=== PATIENT | female | born 1995 | race Caucasian/White ===

== ENCOUNTER 2023-10-21 12:19 | Outpatient (AMB) | payer OTHER, SELFPAY ==
[2023-10-21 12:26] VITALS: BP 126/78; PULSE 99; O2SAT 99; BMI 23.8
--- NOTE | 2023-10-21 12:26 | MHC.PC.OV ---
Vital Signs 10/21/23 12:26 Height 5 ft 7 in Weight 152 lb BMI 23.8 BP 126/78 Blood Pressure Location Rt brachial Position Sitting Pulse 99 Pulse Source Pulse Oximeter Pulse Oximetry (%) 99 Oxygen Delivery Method Room Air Intake Visit Reasons: PE (physical exam), annual Intake Note: Pt is here today for PE. Pt has [employer] and her last pap was at the end of 2020. Allergies amoxicillin Allergy (Unknown, Verified 10/21/23 12:39) rash, vomitting shrimp Allergy (Unknown, Uncoded 10/21/23 12:39) hives Medication List - Last Reconciled 10/21/23 by Ann-Marie Boles MD albuterol sulfate 90 mcg/actuation 2 puffs inhalation Q6H PRN levonorgestrel-ethinyl estrad 0.1-20 mg-mcg 1 tab PO DAILY sertraline (Zoloft) 50 mg PO DAILY Tobacco use date assessed: 10/21/23 Dental Screening Dental Screen Date: 10/21/23 Did you have a dental visit in the last 12 months?: Yes Did you have a dental problem in the last 6 months where you did not have access to dental care?: No Was dental information given to patient?: Patient has dentist HPI Encounter for annual physical exam HPI Details Patient presents for physical. She complains of chronic anxiety and depression getting worse over the last few months. 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 She is established with a counselor and has weekly visits. Patient exercises 4 times a week but reports feeling tired after work, not motivated to interact with her friends or family. Patient denies suicidal ideation or insomnia, change in appetite but has not been preparing meals for herself as before. [facility] Medical History Bartholin gland cyst Asthma Surgical History S/P ACL surgery S/P appendectomy Status post cholecystectomy Family History Father No problems noted. Mother No problems noted. 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 1. Little interest or pleasure in doing things: several days 2. Feeling down, depressed, or hopeless: more than half the days 3. Trouble falling or staying asleep, or sleeping too much: more than half the days 4. Feeling tired or having little energy: more than half the days 5. Poor appetite or overeating: several days 6. Feeling bad about yourself - or that you are a failure or have let yourself or your family down: not at all 7. Trouble concentrating on things, such as reading the newspaper or watching television: more than half the days 8. Moving or speaking so slowly that other people could have noticed. Or the opposite - being so fidgety or restless that you have been moving around a lot more than usual: more than half the days 9. Thoughts that you would be better off or of hurting yourself in some way: not at all Total score: 12 Depression Screening Interpretation: Positive Depression Screening Done: Yes Source: Developed by Drs. Gus Gusman, Yu Vincent, Jassi Lee and colleagues, with an educational maki from [email or web address]. Thrive Questionnaire Date Thrive assessed: 10/21/23 I am a: Patient What is your living situation today?: I have a steady place to live Within the past 12 months, did the food you bought not last and you didn't have the money to get more?: Never true Within the past 12 months, did you worry whether your food would run out before you got money to buy more?: Never true Do you have trouble paying for medicines?: No Do you have trouble getting transportation to medical appointments?: No Do you have trouble paying your heating and electricity bill?: No Do you have trouble taking care of your child, family member or friend?: No Do you have trouble with day-to-day activities such as bathing, preparing meals, shopping, managing finances, etc.?: No Are you currently unemployed and looking for a job?: No Are you interested in more education?: No Please select the resources that you would like help with: None Currently or been in a relationship where the following occur: no concerns reported THRIVE Score: 0 AUDIT C Alcohol Use Questionnaire (AUDIT-C) 1. How often do you have a drink containing alcohol?: Monthly or less 2. How many drinks containing alcohol do you have on a typical day when you are drinking?: 1 or 2 3. How often do you have six or more drinks on one occasion?: Never Total Score: 1 JC-7 AMB Questionnaire JC-7 Date JC - 7 assessed: 10/21/23 Feeling nervous, anxious, or on edge: 2 = More than half the days Not being able to stop or control worryin = Nearly every day Worrying too much about different things: 3 = Nearly every day Trouble relaxin = More than half the days Being so restless that it is hard to sit still: 1 = Several days Becoming easily annoyed or irritable: 2 = More than half the days Feeling afraid as if something awful might happen: 0 = Not at all Total JC-7 score (0-4 normal; 5-9 mild; 10-14 moderate; 15-21 severe): 13 Source: Developed by Drs. Gus Gusman, Yu Vincent, Jassi Lee and colleagues, with an educational maki from [email or web address]. Review of Systems Const All systems reviewed & are unremarkable except as noted in HPI and below Reports no additional complaints Eyes Reports no additional complaints ENT Reports no additional complaints Card Reports no additional complaints Resp Reports no additional complaints GI Reports no additional complaints Reports no additional complaints Physical exam (Primary Care) Vital Signs: Last Vital Signs Pulse 99 10/21/23 12:26 BP 126/78 10/21/23 12:26 Pulse Ox 99 10/21/23 12:26 Oxygen Delivery Method Room Air 10/21/23 12:26 BMI result Body Mass Index 23.8 Tobacco/Smoking Status: Tobacco use Status Tobacco use date assessed 10/21/23 10/21/23 12:42 Patient Tobacco Use Status Never used Tobacco 10/21/23 12:42 e-Cigarette/Vaping Use Never Used 10/21/23 12:26 PHQ-9: PHQ-9 Score PHQ-9: Total score 12 10/21/23 13:02 Depression Screening Interpretation: Positive Thrive Assessment: Date of Thrive Assessment Date Thrive assessed 10/21/23 10/21/23 12:49 Currently or been in a relationship where the following occur: no concerns reported Const General: no acute distress HENMT Head: Yes normal to inspection Ears: hearing grossly normal bilaterally General nose exam: Normal external nose present Mouth: Normal oral and palatal mucosa present Throat: Yes posterior oropharynx normal Eyes General: appearance normal, both eyes and all related structures Neck Neck: Yes no lymphadenopathy and Yes supple Resp Effort & Inspection: normal respiratory effort Auscultation: clear to auscultation bilaterally Cardio Rhythm: regular rhythm Heart sounds: S1 normal heart sound present and S2 normal heart sound present GI Inspection: Yes normal to inspection Palpation (GI): Soft to palpation Percussion: Yes normal to percussion Auscultation: normal bowel sounds Assessment and Plan Assessment & Plan (1) Annual physical exam: Code(s): Z00.00 - Encounter for general adult medical examination without abnormal findings Plan: Well-balanced diet regular physical activity discussed with the patient (2) Normal pelvic exam: Comment: vice president research 2020 negative Code(s): Z01.419 - Encounter for gynecological examination (general) (routine) without abnormal findings (3) Anxiety and depression: Code(s): F41.9 - Anxiety disorder, unspecified; F32.A - Depression, unspecified Plan: Continue with counseling, start Zoloft 25 mg for the 1st week then increase to 50 mg. Follow-up in 2 months Orders: Orders Complete Blood Count Auto Diff Today Z00.00 - Encounter for general adult medical examination without abnormal findings TSH reflex Free T4 Today Z00.00 - Encounter for general adult medical examination without abnormal findings Comprehensive [place]. Panel Fast Today Z00.00 - Encounter for general adult medical examination without abnormal findings Lipid Panel Today Z00.00 - Encounter for general adult medical examination without abnormal findings IRON PROFILE Today Z00.00 - Encounter for general adult medical examination without abnormal findings Medications: New sertraline (Zoloft) 1/2 tabl qd x 1 week, 1 tabl qd 50 mg PO DAILY 90 tabs 0RF Coding Level of Care Code Est Pt Prev Care 18-39y(21192) Diagnoses Annual physical exam Z00.00 Normal pelvic exam Z01.419 Anxiety and depression F41.9; F32.A
== END 2023-10-21 15:11 | disposition home or self-care (01) ==
PROVIDERS: PCP Internal Medicine; Visit Provider Internal Medicine
DX: Z00.00 Encounter for general adult medical examination without abnormal findings (principal); Z01.419 Encounter for gynecological examination (general) (routine) without abnormal findings; F41.9 Anxiety disorder, unspecified; F32.A Depression, unspecified
CPT/HCPCS: 99395

== ENCOUNTER 2023-10-21 13:23 | Outpatient (REF) | payer OTHER, SELFPAY ==
[2023-10-21 16:23] LABS: Basophils Percent Auto 0.5 % (0-2); Eosinophils Absolute Auto 0.1 X10*3/uL (0.0-0.4); Eosinophils Percent Auto 1.1 % (0-4); Hematocrit 41.4 % (37.0-47.0); Hemoglobin 14.1 g/dl (12.0-16.0); Imm Gran Abs Auto 0.02 X10*3/uL (0.00-0.03); Imm Gran Pct Auto 0.3 % (0.0-0.4); Lymphocytes Percent Auto 31.3 % (20-40); MANUAL DIFF FLAG NO; Mean Corpuscular HGB Conc 34.1 g/dl (31.0-35.0); Mean Corpuscular Hemoglobin 29.3 pg (27.0-33.0); Mean Corpuscular Volume 85.9 fL (80.0-98.0); Mean Platelet Volume 10.7 fL (9.4-12.3); Monocytes Absolute Auto 0.7 X10*3/uL (0.1-1.2); Monocytes Percent Auto 11.1 % (2-11); Neutrophils Absolute Auto 3.6 x10*3/uL (2.0-8.3); Neutrophils Percent Auto 55.7 % (45-73); Platelet Count 291 X10*3/uL (160-400); Red Blood Count 4.82 X10*6/uL (4.20-5.50); Red Cell Distribution Width 11.8 % (11.0-16.0); White Blood Count 6.5 X10*3/uL (4.8-10.8)
[2023-10-21 17:34] LABS: Alanine Aminotransferase 13 U/L (0-31); Albumin Level 4.3 g/dL (3.5-5.0); Alkaline Phosphatase 54 U/L (39-117); Anion Gap 17 (12-20); Aspartate Amino Transferase 16 U/L (5-31); Bilirubin Total 0.4 mg/dL (0.0-1.0); Blood Urea Nitrogen 11 mg/dL (9-16); Calcium 9.6 mg/dL (8.4-10.2); Carbon Dioxide 22 mmol/L (22-29); Chloride 106 mmol/L (96-108); Cholesterol 178 mg/dL (<200); Estimated Glomerular Filt Rate > 60; Glucose Fasting 94 mg/dL (60-99); HDL Cholesterol 77 mg/dL (>40); Iron 74 mcg/dL (30-160); LDL Cholesterol Calculated 93 mg/dL (<100); Percent Iron Saturation 22 % (15-50); Potassium 4.2 mmol/L (3.3-5.1); Sodium 141 mmol/L (135-145); Total Iron Binding Capacity 344 mcg/dL (228-428); Total Protein 7.6 g/dL (6.5-8.0); Triglycerides 42 mg/dL (<150); Unsaturated Iron Binding 270 ug/dL
[2023-10-21 17:48] LABS: TSH reflex Free T4 1.44 uIU/mL (0.32-4.0)
== END 2023-10-21 13:24 | disposition home or self-care (01) ==
LOC: HO.HMGCLDS 13:23
PROVIDERS: PCP Internal Medicine; Visit Provider Internal Medicine
DX: Z00.00 Encounter for general adult medical examination without abnormal findings (principal)
CPT/HCPCS: 36415; 80053; 80061; 83540; 84443; 85025

== ENCOUNTER 2024-06-27 09:09 | Outpatient (AMB) | payer OTHER, SELFPAY ==
[2024-06-27 09:16] VITALS: BP 124/86; PULSE 97; O2SAT 97; BMI 26.6
--- NOTE | 2024-06-27 09:16 | A.OFFPC_ITS ---
Vital Signs 06/27/24 09:16 Height 5 ft 7 in Weight 170 lb BMI 26.6 BP 124/86 Blood Pressure Location Lt brachial Position Sitting Pulse 97 Pulse Source Pulse Oximeter Pulse Oximetry (%) 97 Oxygen Delivery Method Room Air Intake Visit Reasons: Regular Visit Intake Note: Pt is here today for a follow up visit. Allergies amoxicillin Allergy (Unknown, Verified 06/27/24 09:23) rash, vomitting shrimp Allergy (Unknown, Uncoded 06/27/24 09:16) hives Medication List - Last Reconciled 06/27/24 by Ann-Marie Boles MD albuterol sulfate 90 mcg/actuation 2 puffs inhalation Q6H PRN levonorgestrel-ethinyl estrad 0.1-20 mg-mcg 1 tab PO DAILY meloxicam 15 mg PO DAILY Tobacco use date assessed: 06/27/24 Dental Screening Dental Screen Date: 06/27/24 Did you have a dental visit in the last 12 months?: Yes Did you have a dental problem in the last 6 months where you did not have access to dental care?: No Was dental information given to patient?: Patient has dentist HPI Regular Visit HPI0 Details Pt c/o R wrist after injury playing volleyball 1 week ago. Pt had negative XR in Urgent Care. The pain is worse when patient is trying to use her right hand. She denies pain at rest. She tried wrist splint which made the pain worse. Patient denies soft tissue swelling erythema or warmth. [facility] Medical History Bartholin gland cyst Asthma Surgical History S/P ACL surgery S/P appendectomy Status post cholecystectomy Family History Father No problems noted. Mother No problems noted. 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 1. Little interest or pleasure in doing things: several days 2. Feeling down, depressed, or hopeless: several days 3. Trouble falling or staying asleep, or sleeping too much: several days 4. Feeling tired or having little energy: more than half the days 5. Poor appetite or overeating: not at all 6. Feeling bad about yourself - or that you are a failure or have let yourself or your family down: not at all 7. Trouble concentrating on things, such as reading the newspaper or watching television: not at all 8. Moving or speaking so slowly that other people could have noticed. Or the opposite - being so fidgety or restless that you have been moving around a lot more than usual: not at all 9. Thoughts that you would be better off or of hurting yourself in some way: not at all Total score: 5 Depression Screening Interpretation: Negative Depression Screening Done: Yes 46381 - PHQ-9 Billing: Yes Source: Developed by Drs. Gus Gusman, Yu Vincent, Jassi Lee and colleagues, with an educational maki from [employer]. Thrive Questionnaire Date Thrive assessed: 06/27/24 I am a: Patient What is your living situation today?: I have a steady place to live Within the past 12 months, did the food you bought not last and you didn't have the money to get more?: I choose not to answer this question Within the past 12 months, did you worry whether your food would run out before you got money to buy more?: I choose not to answer this question Do you have trouble paying for medicines?: No Do you have trouble getting transportation to medical appointments?: No Do you have trouble paying your heating and electricity bill?: No Do you have trouble taking care of your child, family member or friend?: I choose not to answer this question Do you have trouble with day-to-day activities such as bathing, preparing meals, shopping, managing finances, etc.?: I choose not to answer this question Are you currently unemployed and looking for a job?: No Are you interested in more education?: No Please select the resources that you would like help with: None Currently or been in a relationship where the following occur: No concerns reported THRIVE Score: 0 AUDIT C Alcohol Use Questionnaire (AUDIT-C) 1. How often do you have a drink containing alcohol?: Monthly or less 2. How many drinks containing alcohol do you have on a typical day when you are drinking?: 1 or 2 3. How often do you have six or more drinks on one occasion?: Never Total Score: 1 JC-7 AMB Questionnaire JC-7 Date JC - 7 assessed: 06/27/24 Feeling nervous, anxious, or on edge: 2 = More than half the days Not being able to stop or control worryin = More than half the days Worrying too much about different things: 2 = More than half the days Trouble relaxin = More than half the days Being so restless that it is hard to sit still: 2 = More than half the days Becoming easily annoyed or irritable: 2 = More than half the days Feeling afraid as if something awful might happen: 1 = Several days Total JC-7 score (0-4 normal; 5-9 mild; 10-14 moderate; 15-21 severe): 13 Source: Developed by Drs. Gus Gusman, Yu Vincent, Jassi Lee and colleagues, with an educational maki from [employer]. JC-7 Assessment Billing JC-7 Assessment Tool: JC-7 Assessment 39093 Review of Systems Const All systems reviewed & are unremarkable except as noted in HPI and below Eyes Reports no additional complaints ENT Reports no additional complaints Card Reports no additional complaints Resp Reports no additional complaints GI Reports no additional complaints Physical exam (Primary Care) Vital Signs: Last Vital Signs Pulse 97 06/27/24 09:16 BP 124/86 06/27/24 09:16 Pulse Ox 97 06/27/24 09:16 Oxygen Delivery Method Room Air 06/27/24 09:16 BMI result Body Mass Index 26.6 Tobacco/Smoking Status: Tobacco use Status Tobacco use date assessed 06/27/24 06/27/24 09:17 Patient Tobacco Use Status Never used Tobacco 06/27/24 09:17 e-Cigarette/Vaping Use Never Used 06/27/24 09:17 PHQ-9: PHQ-9 Score PHQ-9: Total score 5 06/27/24 09:17 Depression Screening Interpretation: Negative Thrive Assessment: Date of Thrive Assessment Date Thrive assessed 06/27/24 06/27/24 09:17 Currently or been in a relationship where the following occur: No concerns reported Const General: no acute distress Resp Effort & Inspection: normal respiratory effort Auscultation: clear to auscultation bilaterally Cardio Rhythm: regular rhythm Heart sounds: S1 normal heart sound present and S2 normal heart sound present Extrem Other: There is tenderness and slightly decreased range of motion of ulnar aspect of right wrist, no soft tissue swelling erythema or warmth Coding Level of Care Code Est Pt Level 3 (19195) Diagnoses Right wrist injury S69.91XA Additional Codes JC-7 Assessment Billing - JC-7 Assessment Tool: JC-7 Assessment 27061 ([id number]) Assessment & Plan Assessment & Plan (1) Right wrist injury: Code(s): S69.91XA - Unspecified injury of right wrist, hand and finger(s), initial encounter Category: Medical Plan: Patient will schedule OT near her home, supportive care discussed with the patient, meloxicam ss prescribed Orders: Orders OT Evaluation and Treatment Today S69.91XA - Unspecified injury of right wrist, hand and finger(s), initial encounter Medications: New meloxicam 15 mg PO DAILY 10 tabs 0RF
== END 2024-06-27 10:51 | disposition home or self-care (01) ==
PROVIDERS: PCP Internal Medicine; Visit Provider Internal Medicine
DX: S69.91XA Unspecified injury of right wrist, hand and finger(s), initial encounter (principal)

== ENCOUNTER → 2024-06-27 09:09 | Outpatient (BNVA) | payer OTHER, SELFPAY | PROVIDERS: PCP Internal Medicine; Visit Provider Internal Medicine | DX: S69.91XA Unspecified injury of right wrist, hand and finger(s), initial encounter (principal); X58.XXXA Exposure to other specified factors, initial encounter; Y93.68 Activity, volleyball (beach) (court); Y92.9 Unspecified place or not applicable; Y99.9 Unspecified external cause status | CPT/HCPCS: 96127 ==

== ENCOUNTER 2024-10-24 09:03 | Outpatient (AMB) | payer OTHER, SELFPAY ==
[2024-10-24 09:04] VITALS: BP 126/86; PULSE 112; RESP 18; TEMP 36.8; O2SAT 99; BMI 26.6
--- NOTE | 2024-10-24 09:04 | MHC.PC.OV ---
Vital Signs 10/24/24 09:04 Height 5 ft 7 in Weight 170 lb BMI 26.6 BP 126/86 Blood Pressure Location Lt brachial Position Sitting Respiration 18 Pulse 112 H Pulse Source Pulse Oximeter Temp 98.3 F Temp Source Oral Pulse Oximetry (%) 99 Oxygen Delivery Method Room Air Intake Visit Reasons: ER follow up Intake Note: Pt is here today for ER follow up visit. Pt states that she has been having nausea. Allergies amoxicillin Allergy (Unknown, Verified 10/24/24 09:14) rash, vomitting shrimp Allergy (Unknown, Uncoded 10/24/24 09:14) hives Medication List - Last Reconciled 10/24/24 by Ann-Marie Boles MD albuterol sulfate 90 mcg/actuation 2 puffs inhalation Q6H PRN levonorgestrel-ethinyl estrad 0.1-20 mg-mcg (Vienva) 1 tab PO DAILY Tobacco use date assessed: 10/24/24 Dental Screening Dental Screen Date: 10/24/24 Did you have a dental visit in the last 12 months?: Yes Did you have a dental problem in the last 6 months where you did not have access to dental care?: No Was dental information given to patient?: Patient has dentist HPI ER follow up HPI Details Patient presents for the follow-up of ER visit 2 weeks ago. Patient developed nausea vomiting abdominal pain increased urinary frequency dysuria. The CT of the abdomen and pelvis was negative for nephrolithiasis/acute abd process. Patient was treated for pyelonephritis with cefuroxime for 1 week with initially improvement of the symptoms. Patient's symptoms recurred 2 days after completing the treatment over a week ago. She denies fever chills but reports persistent epigastric abdominal discomfort, nausea intermittent vomiting worse after eating, needle-like sensation in the abdomen and lower back, constipation relieved after milk of magnesia. Patient denies hematochezia melena. She has not been sexually active for over a month and had negative test 2 weeks ago. [facility] Medical History Bartholin gland cyst Asthma Surgical History S/P ACL surgery S/P appendectomy Status post cholecystectomy Family History Father No problems noted. Mother No problems noted. Social History Household Members Other:: lives with boyfriend for 4 yrs, work as therapist in [place] Housing: Apartment Alcohol intake: current Alcohol intake frequency: holidays/special occasions only Patient Tobacco Use Status: Never used Tobacco e-Cigarette/Vaping Use: Never Used service: No Current occupational status: employed Cognitive needs: No Hearing needs: No Vision needs: Yes Questionnaire PHQ-9 Over the last 2 weeks, how often have you been bothered by any of the following problems? 1. Little interest or pleasure in doing things: several days 2. Feeling down, depressed, or hopeless: several days 3. Trouble falling or staying asleep, or sleeping too much: more than half the days 4. Feeling tired or having little energy: more than half the days 5. Poor appetite or overeating: more than half the days 6. Feeling bad about yourself - or that you are a failure or have let yourself or your family down: several days 7. Trouble concentrating on things, such as reading the newspaper or watching television: several days 8. Moving or speaking so slowly that other people could have noticed. Or the opposite - being so fidgety or restless that you have been moving around a lot more than usual: not at all 9. Thoughts that you would be better off or of hurting yourself in some way: not at all Total score: 10 Depression Screening Interpretation: Positive (Patient is established with therapist) Depression Screening Follow-up: Existing condition and In treatment Depression Screening Done: Yes 16431 - PHQ-9 Billing: Yes Source: Developed by Drs. Gus Gusman, Yu Vincent, Jassi Lee and colleagues, with an educational maki from [employer]. Thrive Questionnaire Date Thrive assessed: 10/24/24 I am a: Patient What is your living situation today?: I have a steady place to live Within the past 12 months, did the food you bought not last and you didn't have the money to get more?: Never true Within the past 12 months, did you worry whether your food would run out before you got money to buy more?: Never true Do you have trouble paying for medicines?: No Do you have trouble getting transportation to medical appointments?: No Do you have trouble paying your heating and electricity bill?: No Do you have trouble taking care of your child, family member or friend?: No Do you have trouble with day-to-day activities such as bathing, preparing meals, shopping, managing finances, etc.?: No Are you currently unemployed and looking for a job?: No Are you interested in more education?: No Please select the resources that you would like help with: None THRIVE Score: 0 AUDIT C Alcohol Use Questionnaire (AUDIT-C) 1. How often do you have a drink containing alcohol?: Monthly or less 2. How many drinks containing alcohol do you have on a typical day when you are drinking?: 1 or 2 3. How often do you have six or more drinks on one occasion?: Never Total Score: 1 JC-7 AMB Questionnaire JC-7 Date JC - 7 assessed: 10/24/24 Feeling nervous, anxious, or on edge: 1 = Several days Not being able to stop or control worryin = Several days Worrying too much about different things: 0 = Not at all Trouble relaxin = Several days Being so restless that it is hard to sit still: 0 = Not at all Becoming easily annoyed or irritable: 2 = More than half the days Feeling afraid as if something awful might happen: 0 = Not at all Total JC-7 score (0-4 normal; 5-9 mild; 10-14 moderate; 15-21 severe): 5 Source: Developed by Drs. Gus Gusman, Yu Vincent, Jassi Lee and colleagues, with an educational maki from [employer]. JC-7 Assessment Billing JC-7 Assessment Tool: JC-7 Assessment 80175 Review of Systems Const All systems reviewed & are unremarkable except as noted in HPI and below Eyes Reports no additional complaints ENT Reports no additional complaints Card Reports no additional complaints Resp Reports no additional complaints GI Reports no additional complaints Reports no additional complaints Physical exam (Primary Care) Vital Signs: Last Vital Signs Temp 98.3 F 10/24/24 09:04 Pulse 112 H 10/24/24 09:04 Resp 18 10/24/24 09:04 BP 126/86 10/24/24 09:04 Pulse Ox 99 10/24/24 09:04 Oxygen Delivery Method Room Air 10/24/24 09:04 BMI result Body Mass Index 26.6 Tobacco/Smoking Status: Tobacco use Status Tobacco use date assessed 10/24/24 10/24/24 09:07 Patient Tobacco Use Status Never used Tobacco 10/24/24 09:07 e-Cigarette/Vaping Use Never Used 10/24/24 09:06 PHQ-9: PHQ-9 Score PHQ-9: Total score 10 10/24/24 10:02 Depression Screening Interpretation: Positive (Patient is established with therapist) Depression Screening Follow-up: Existing condition and In treatment Thrive Assessment: Date of Thrive Assessment Date Thrive assessed 10/24/24 10/24/24 09:06 Const General: no acute distress HENMT Head: Yes normal to inspection Mouth: Normal oral and palatal mucosa present Throat: Yes posterior oropharynx normal Eyes General: appearance normal, both eyes and all related structures Neck Neck: Yes no lymphadenopathy and Yes supple Resp Effort & Inspection: normal respiratory effort Auscultation: clear to auscultation bilaterally Cardio Rhythm: regular rhythm Heart sounds: S1 normal heart sound present and S2 normal heart sound present GI Inspection: Yes normal to inspection Palpation (GI): Soft to palpation and Tenderness to palpation present (GI) in the epigastrum; with no rebound tenderness Percussion: Yes normal to percussion Auscultation: normal bowel sounds General: Yes CVA tenderness bilateral Back/Spine/Pelvis Back: CVA tenderness Results AMB Urinalysis, Automated UA Leukoctes 0 John Paul/uL Last Edit by RUDDY Silverio on 10/24/24 10:15 UA Nitrite Negative Last Edit by RUDDY Silverio on 10/24/24 10:15 UA Urobilinogen 0.2 mg/dL Last Edit by RUDDY Silverio on 10/24/24 10:15 UA Protein 0 mg/dL Last Edit by RUDDY Silverio on 10/24/24 10:15 UA pH 6.0 Last Edit by RUDDY Silverio on 10/24/24 10:15 UA Blood 0 Tim/uL Last Edit by RUDDY Silverio on 10/24/24 10:15 UA Specific Grundy 1.020 Last Edit by RUDDY Silverio on 10/24/24 10:15 UA Ketone Negative Last Edit by RUDDY Silverio on 10/24/24 10:15 UA Bilirubin 0 mg/dL Last Edit by RUDDY Silverio on 10/24/24 10:15 UA Glucose 0 mg/dL Last Edit by RUDDY Silverio on 10/24/24 10:15 Results Reviewed Results Reviewed: Laboratory Last Values Urine pH (Auto) 6.0 10/24/24 09:49 Specific Grundy (Auto) 1.020 10/24/24 09:49 Urine Protein (Auto) 0 mg/dL 10/24/24 09:49 Glucose (UA)(Auto) 0 mg/dL 10/24/24 09:49 Urine Ketones (Auto) Negative 10/24/24 09:49 Urine Blood (Auto) 0 Tim/uL 10/24/24 09:49 Urine Nitrite (Auto) Negative 10/24/24 09:49 Urine Bilirubin (Auto) 0 mg/dL 10/24/24 09:49 Urine Urobilinogen (Auto) 0.2 mg/dL 10/24/24 09:49 Leukocyte Esterase (Auto) 0 John Paul/uL 10/24/24 09:49 Coding Level of Care Code Est Pt Level 3 (98086) Diagnoses Dysuria R30.0 Abdominal pain R10.9 Additional Codes JC-7 Assessment Billing - JC-7 Assessment Tool: JC-7 Assessment 73360 ([id number]) PHQ-9 - 90238 - PHQ-9 Billing: Yes ([id number]) Assessment & Plan Assessment & Plan (1) Dysuria: Code(s): R30.0 - Dysuria Category: Medical Plan: Urine dipstick is negative. Levaquin 750 daily for 7 days is prescribed pending urine culture. Supportive care discussed with the patient (2) Abdominal pain: Code(s): R10.9 - Unspecified abdominal pain Category: Medical Plan: Trial of omeprazole check labs including comprehensive panel, constipation management discussed with the patient she was advised to increase fiber intake and use stool softener. Follow-up after treatment Orders: Orders Complete Blood Count Auto Diff Today R10.9 - Unspecified abdominal pain, R30.0 - Dysuria AMB Urinalysis Automated Today R10.9 - Unspecified abdominal pain, R30.0 - Dysuria Urine Culture Today R10.9 - Unspecified abdominal pain, R30.0 - Dysuria Comprehensive Met. Panel Today R10.9 - Unspecified abdominal pain, R30.0 - Dysuria Medications: New levofloxacin 750 mg PO DAILY 7 tabs 0RF 7 days ondansetron HCl 4 mg PO Q8H PRN 14 tabs 0RF nausea and vomiting omeprazole 20 mg PO DAILY 30 caps 0RF
--- OUTSIDE RECORDS SUMMARY | 2024-10-24 10:27 | XMS_ITS | Encounter Summary ---
[email or web address] Address [address] [place] [address] Care Team Providers Care Car Driver Name Role Phone Pcp, No Primary Care Provider Unavailabl e Encounter Details Date Type Department Care Team (Late st Contact Info) Description 10/07/2024 Procedure Pass [facility] - [address] [phone] Social History Tobacco Use Types Packs/Day Years Used Date Smoking Tobacco: Never Smokeless Tobacco: Never Comments Unknown Sex and Gender Information Value Date Recorded Sex Assigned at Not on file Legal Sex Female 6:17 PM EST Gender Identity Not on file Sexual Orientation Not on file documented as of this encounter Plan of Treatment Not on file documented as of this encounter Visit Diagnoses Not on filedocumented in this encounter Care Teams Car Driver Relationship Specialty Start Date End Date Pcp, Cris [phone] PCP - General 10/07/24 documented as of this encounter
--- OUTSIDE RECORDS SUMMARY | 2024-10-24 10:27 | XMS_ITS | Clinical Summary ---
Author Organization [facility] Address [address] [place], [place] [id number] Phone Care Team Providers Care Bicycle Inspector Name Role Phone Elsy Kitchen MD Primary Care Pro vider Immunizations Name Administration Dates Next Due DTaP 07/31/2002, 9,01/27/1998,11/25,1997 HPV, Quadrivalent 08/25/2010,10/29/2009,08/11/20 09 Hep A, ped/adol 05/20/2016,11/13/2015 Hep B, ped/adol 04/22/1998,1997,1997 HiB 10/24/1998, 8,1997,09/24 IPV 07/31/2002, 8,1997,09/24 Influenza, injectable, quadr ivalent, preservative free 08/12/2015,06/29/2014,07/16/2013 Influenza, injectable, trivalent 012,08/26/2011,07/22/2010,09/03,07/17/2008,07/31/2007,08/17/2006 ,08/26/2004,08/05/2004,06/26/2004 MMR 07/31/2002,10/24/1998 Meningococcal Conj (Menactra) MCV4P 10/17/2014,1 10/02/2007 Tdap 08/02/2008 Varicella 08/02/2008,07/24/1998 Social History Tobacco Use Types Packs/Day Years Used Date Smoking Tobacco: Never Assessed Comments Unknown Sex and Gender Information Value Date Recorded Sex Assigned at Not on file Legal Sex Female 12:17 PM EST Gender Identity Not on file Sexual Orientation Not on file Last Filed Vital Signs Vital Sign Reading Time Taken Comments Blood Pressure 124/75 05/02/2017 12:00 AM EDT Pulse 93 05/02/2017 12:00 AM EDT Temperature 36.6 ??C (97.9 ??F) 05/02/2017 12:00 AM E DT Respiratory Rate - - Oxygen Saturation 98% 03/16/2016 12:00 AM EDT Inhaled Oxygen Concentration - - Weight 64.4 kg (142 lb) 05/02/2017 12:00 AM EDT Height 168.3 cm (5' 6.25 ) 05/02/2017 12:00 AM E DT Body Mass Index 22.75 05/02/2017 12:00 AM EDT Plan of Treatment Health Maintenance Due Date Last Done Comments DTaP,Tdap,and Td Vaccines (7 - Td or Tdap) 08/02/2018 08/02/2008, 07/31/2002, 12/26/1998, Additional history exists Influenza Vaccines (#1) 2024 08/12/20 15, 06/29/2014, 07/16/2013, Additional history exists COVID-19 Vaccine ( season) 2024 Hepatitis B Vaccines Completed 04/22/1998, 1997, 1997 HIB Vaccines Completed 10/24/1998, 12/1997, 1997, Additional history exists IPV Vaccines Completed 07/31/2002, 12/1997, 1997, Additional history exists MMR Vaccines Completed 07/31/2002, 10/24/1998 Varicella Vaccines Completed 08/02/2008, 07/24/1998 HPV Vaccines Completed 08/25/2010, 11/2009, 08/11/2009 Meningococcal Vaccine Completed 10/17/2014, 008 Hepatitis A Vaccines Completed 05/20/2016, 11/13/19 16 Men B Vaccine Aged Out No longer elig ible based on patient's age to complete this topic Pneumococcal Vaccine Aged Out No long er eligible based on patient's age to complete this topic Care Teams Bicycle Inspector Relationship Specialty Start Date End Date Elsy Kitchen MD [address] [place] [phone] PCP - General 05/02/17
--- OUTSIDE RECORDS SUMMARY | 2024-10-24 10:27 | XMS_ITS | Encounter Summary ---
Author Organization [facility] Address [address] [place] [phone] Phone Care Team Providers Care Mortgage Loan Reviewer Name Role Phone Elsy Kitchen MD Primary Care Pro vider Encounter Details Date Type Department Care Team (Late st Contact Info) Description 11/24/2017 Conversion Encounter [facility] [address] [phone] Elsy Kitchen MD [address] [id number] Social History Tobacco Use Types Packs/Day Years [...] on filedocumented in this encounter Care Teams Mortgage Loan Reviewer Relationship Specialty Start Date End Date Elsy Kitchen MD [address] [phone] PCP - General 05/02/17 documented as of this encounter
--- OUTSIDE RECORDS SUMMARY | 2024-10-24 10:27 | XMS_ITS | Encounter Summary ---
[facility] Organization [facility] Address [address] [place] [address] Care Team Providers Care Direct Service Professional Name Role Phone Pcp, No Primary Care Provider Unavailabl e Reason for Visit * Reason Comments Back Pain Abdominal Pain Vomiting Encounter Details Date Type Department Care Team (Late st Contact Info) Description 10/07/2024 8:02 PM EST - 10/07/2024 11:57 PM EST Emergency [facility] [address] [place] [phone] Keesha Olivarez PA-C [address] [place] [phone] Kait Borjas NP [address] [place] [phone] Cystitis (Primary Dx) Discharge Disposition: Home or Self Care Social History Tobacco Use Types Packs/Day Years Used Date Smoking Tobacco: Never Smokeless Tobacco: Never Tobacco Cessation:Counseling Given: Not Answered Comments Unknown Sex and Gender Information Value Date Recorded Sex Assigned at Not on file Legal Sex Female 6:17 PM EST Gender Identity Not on file Sexual Orientation Not on file documented as of this encounter Last Filed Vital Signs Vital Sign Reading Time Taken Comments Blood Pressure 140/99 10/07/2024 10:30 PM EST Pulse 98 10/07/2024 10:30 PM EST Temperature 36.8 ??C (98.3 ??F) 10/07/2024 6:24 PM ES T Respiratory Rate 18 10/07/2024 10:30 PM EST Oxygen Saturation 98% 10/07/2024 10:30 PM EST Inhaled Oxygen Concentration - - Weight 77.1 kg (170 lb) 10/07/2024 6:24 PM EST Height 170.2 cm (5' 7 ) 10/07/2024 6:24 PM EST Body Mass Index 26.63 10/07/2024 6:24 PM EST documented in this encounter Discharge Instructions * Discharge Instructions* Kait Borjas NP - 10/07/2024 11:33 PM EST There was no evidence of kidney stone or acute organ dysfunction requiring admission to the hospital at this time. Your symptoms are most likely caused by a lower urinary tract infection. You received your 1st dose of antibiotics while in the ED so please start your antibiotics tomorrowmorning with breakfast. Please take 1 tablet of cefuroxime every 12 hours with food for 7 days. Please finish the entire course of antibiotics even if you are feeling better. I have also written you a prescription for Zofran which may be taken every 6 hours for nausea/vomiting. Please take a full 30 minutes before eating or drinking. You may take 600 mg of ibuprofen every 6-8 hours with food or a 1000 mg of Tylenol every 8 hours asneeded for pain/fevers. Please follow-up with your primary care doctor for re-evaluation in the next few days. Return to the emergency department if you develop fevers, worsening pain, nausea/vomiting despite medication, worsening abdominal pain or any new or worsening symptoms. * Attachments The following attachments cannot be sent through Care Everywhere. * Acute Cystitis (Icelandic) documented in this encounter Medications at Time of Discharge ondansetron (ZOFRAN) 4 MG tablet Take 1 tablet (4 mg total) by mouth every 6 (six) hours for 10 days 12 tablet 10/07/2024 cefuroxime 250 MG tablet Take 1 tablet (250 mg total) by mouth every 12 (twelve) hours for 7 days 14 tablet 10/07/2024 10/14/2024 documented as of this encounter ED Notes * Brian Aparicio RN - 10/07/2024 10:41 PM EST Patient out of room to: CT * Kait Borjas NP - 10/07/2024 9:12 PM EST Service Date: ED Arrival Date 10/07/24 Chief Complaint Chief Complaint Patient presents with Back Pain Abdominal Pain Vomiting HPI Patient is a 29-year-old female with a past medical history of asthma, appendectomy and cholecystectomy presenting with right-sided flank pain, nausea/vomiting, and difficulty urinating x 24 hours. States she developed right-sided flank pain on 10/03/2024 and had 1 episode of nausea/vomiting at this time. Pain got worse over the following days with 2 additional episodes of nausea/vomiting. Statesthe pain gets worse with movement and is intermittent radiating to her right lower quadrant and epigastric region. Intermittent lightheadedness. Denies fevers/chills, diarrhea, chest pain, shortness of breath, hematuria, dysuria, known injuries. ROS Review of Systems Constitutional: Positive for chills. Negative for diaphoresis, fatigue and fever. HENT: Negative for congestion and sore throat. Respiratory: Negative for cough, choking, chest tightness, shortness of breath, wheezing and stridor. Cardiovascular: Negative for chest pain, palpitations and leg swelling. Gastrointestinal: Positive for abdominal pain, constipation, nausea and vomiting. Negative for abdominal distention, blood in stool and diarrhea. Genitourinary: Positive for difficulty urinating and flank pain. Negative for dysuria, frequency, hematuria, urgency, vaginal bleeding, vaginal discharge and vaginal pain. Musculoskeletal: Positive for myalgias. Negative for neck pain and neck stiffness. Skin: Positive for pallor. Negative for rash and wound. Neurological: Positive for light-headedness. Negative for syncope, facial asymmetry, numbness and headaches. Psychiatric/Behavioral: Negative for confusion. Past History Past Medical History: Diagnosis Date Asthma Past Surgical History: Procedure Laterality Date CHOLECYSTECTOMY No family history on file. Social History[1] LMP/OB Status LMP Sep 25, 2024 Physical Exam Triage Vitals [10/07/24 1824] BP 136/92 Heart Rate 107 Resp 18 Temp 98.3 ??F (36.8 ??C) Temp src Oral SpO2 97 % Weight 170 lb (77.1 kg) Height 5' 7 (1.702 m) Body mass index is 26.63 kg/m??. [place] body weight: 61.6 kg (135 lb 12.9 oz) Physical Exam Vitals and nursing note reviewed. Constitutional: Appearance: She is well-developed and normal weight. She is ill-appearing. HENT: Head: Normocephalic and atraumatic. Mouth/Throat: Pharynx: No pharyngeal swelling or oropharyngeal exudate. Eyes: Extraocular Movements: Extraocular movements intact. Cardiovascular: Rate and Rhythm: Normal rate and regular rhythm. Heart sounds: Normal heart sounds. No murmur heard. Pulmonary: Effort: Pulmonary effort is normal. No respiratory distress. Breath sounds: Normal breath sounds. No stridor. No wheezing, rhonchi or rales. Abdominal: General: Abdomen is flat. Bowel sounds are normal. There is no distension. There are no signs of injury. Palpations: Abdomen is soft. There is no mass. Tenderness: There is abdominal tenderness in the right lower quadrant, epigastric area and suprapubic area. There is right CVA tenderness and guarding. There is no left CVA tenderness. Negative signsinclude Parmar's sign, McBurney's sign and obturator sign. Hernia: No hernia is present. Skin: Capillary Refill: Capillary refill takes less than 2 seconds. Coloration: Skin is pale. Neurological: General: No focal deficit present. Mental Status: She is alert. Cranial Nerves: No cranial nerve deficit. Motor: No weakness. Psychiatric: Mood and Affect: Mood normal. Behavior: Behavior normal. ED Course Labs reviewed by me: Labs Reviewed CBC AND AUTO DIFFERENTIAL - Abnormal; Notable for the following components: Result Value WBC 11.6 (*) RBC 5.42 (*) All other components within normal limits COMPREHENSIVE METABOLIC PANEL - Abnormal; Notable for the following components: Glucose 101 (*) Creatinine 1.19 (*) Total Protein 8.3 (*) Albumin 5.4 (*) All other components within normal limits Narrative: The calcium reference range has been changed as of 08/21/2024. URINALYSIS, REFLEX TO CULTURE - Abnormal; Notable for the following components: Clarity, UA Turbid (*) Leukocyte Esterase 250 (*) All other components within normal limits Narrative: A urine culture is being performed on this specimen due to established reflex criteria URINE MICROSCOPIC (SEDIMENT ONLY) - Abnormal; Notable for the following components: WBC 6-10 (*) RBC 3-5 (*) Squam Epithelial Moderate (*) Bacteria Few (*) All other components within normal limits LIPASE - Normal HCG QUALITATIVE SERUM - Normal URINE CULTURE AND COLONY COUNT Radiology imaging reviewed by me: CT renal for stones Procedures No notes on file Progress LAMS Score: 0 (10/07/24 2321) Medical Decision Making Patient is a non-toxic appearing 29-year-old female status post appendectomy and cholecystectomy many years prior, presenting with right-sided flank pain radiating to her right lower quadrant and difficulty urinating x 24 hours. Tachycardic to 107 bpm with a regular rhythm, tachycardia resolving after IVF. She remains afebrile with stable vital signs throughout stay. Positive right- sided CVA tenderness. PVR shows no retained urine after urination. Denies any addition urinary symptoms or vaginaldischarge. Denies concern for STIs and would like to forgoe testing at this time. LABS: Leukocytosis to 11.6. Remains hemodynamically stable. Creatinine elevated to 1.19. EGFR and BUN WNL. HCG negative. Lipase negative. UA significant for moderate leuks, RBCs and bacteria. IMAGING: CT Renal: Impression: No evidence of acute intra-abdominal or pelvic pathology. No obstructing stones or hydronephrosis. No paraovarian fat stranding or fluid to suggest torsion. No free fluid in the abdomen or pelvis. Medicated with IV rocephin for suspected cystitis and IVF for [place]. Provided with zofran and toradolwith significant improvement in symptoms. After fluids, she is able to void without difficulty. Provided with prescription for antibiotics and zofran. Educated to return to the ED immediately if she developed worsening N/V, inability to urinate, fevers, syncope, worsening pain or any new/worsening symptoms. Patient agrees and will call her Pcp to schedule follow up and re-check of kidney function. Problems Addressed: Cystitis: acute illness or injury that poses a threat to life or bodily functions Amount and/or Complexity of Data Reviewed Independent Historian: spouse Details: Sig. Other at bedside to aid in history. External Data Reviewed: labs. Details: Prior labs Labs: ordered. Decision-making details documented in ED Course. Radiology: ordered and independent interpretation performed. Decision-making details documented in ED Course. Risk OTC drugs. Prescription drug management. Clinical Impressions: Clinical Impressions: as of 10/08/24915 Cystitis Care Transferred: Disposition Discharge [1] Social History Socioeconomic History Marital status: Single Tobacco Use Smoking status: Never Smokeless tobacco: Never Kait Borjas NP 10/08/24915 * Keesha Olivarez PA-C - 10/07/2024 6:29 PM EST TRIAGE NOTE *Chief Complaint: Vomiting, abdominal pain and back pain Dec urine output Self limited minor [] Acute uncomplicated [] Acute complicated [x] Chronic stable [] Chronic w/ exacerbation [] Chronic w/ severe exacerbation [] Systemic symptoms [] Undx prob, uncertain dx [] HPI *TIME OF ONSET Rapid onset [] Gradual onset [x] SEVERITY Mild [x] Moderate [] Severe [] ROS *CONSTITUTIONAL Fever [] No Fever [x] EXAM *NEURO/PSYCHIATRIC NAD [] Alert [x] Oriented X3 [] Anxious [] Lethargic [] Mild distress [] Moderate distress [] Severe distress [] Disoriented [] *RESPIRATORY Chest non tender [] No respiratory distress [x] Respiratory distress [] Breath sounds normal [] Wheezes [] Rales [] Rhonchi [] CARDIOVASCULAR Regular rate and rhythm [] No mummur [] No Gallop [] Irregular regular rhythm [] Irregular irregular rhythm [] Tachycardia [] Bradycardia [] Decreased pulses [] ABDOMEN Non-tender [] No organomegaly [] Normal bowel sounds [] No distention [x] Tenderness [] Guarding [] Rebound [] Abnormal bowel sounds [] OTHER EXAM MEDICAL DECISION MAKING I advised patient that this initial exam does not constitute their complete emergency medical screening exam, and they should stay in the department until it can be completed. Tests may have been ordered, but depending on the results, more testing or treatment may be indicated. I advised the patient that if they leave before being formally discharged, we may not be able to contact them with abnormal test results, they could still have a life-threatening medical condition, and will be responsible for following up test results with their PCP or another medical provider. The patient is alert andcoherent and has capacity to comprehend this advice. [x] *Clinical Impression (If AMA and no work-up or exam performed will default to chief complaint ): Keesha Olivarez PA-C 10/07/24 1830 * Marizol Rodriguez RN - 10/07/2024 6:20 PM EST Patient self presents with c/o lower back pain, abdominal pain, and vomiting that began Tuesday. Reports last BM was yesterday. States she has not urinated since yesterday. Denies fevers. documented in this encounter Plan of Treatment Not on file documented as of this encounter Procedures Procedure Name Priority Date/Time Associated Diagnosis Comments CT RENAL FOR STONES STAT 10/07/2024 1 0:43 PM EST URINE MICROSCOPIC (SEDIMENT ONLY) STAT 10/07/2024 9:34 PM EST URINALYSIS, REFLEX TO CULTURE STAT 10/07/2024 9:34 PM EST URINE CULTURE AND COLONY COUNT STAT 10/07/2024 9:34 PM EST CBC AND AUTO DIFFERENTIAL STAT 10/07/2024 6:39 PM EST HCG QUALITATIVE SERUM STAT 10/07/2024 6:39 PM EST LIPASE STAT 10/07/2024 6:39 PM EST COMPREHENSIVE METABOLIC PANEL STAT 10/07/2024 6:39 PM EST documented in this encounter Results * CT renal for stones (10/07/2024 10:43 PM EST) Anatomical Region Laterality Modality Abdomen Computed Tomogra phy 10/08/2024 7:51 AM EST Impressions 10/08/2024 7:54 AM EST IMPRESSION: No nephroureterolithiasis or acute obstructive uropathy. No acute infectious or inflammatory process in the abdomen or pelvis. 3 cm left ovarian cyst, likely physiologic. No evidence of torsion. This exam was performed with the following dose reduction techniques; automated exposure control and adjustment of milliamperage and/or kilovoltage according to patient size. RS: [id number] Narrative 10/08/2024 7:[address] ABDOMEN AND PELVIS WITHOUT CONTRAST INDICATION: Low back pain, abdominal pain, vomiting TECHNIQUE: Axial images obtained from the lung bases through the proximal femurs without oral or intravenous contrast. Coronal and sagittal reformats obtained. COMPARISON: None FINDINGS: No nephroureterolithiasis, hydroureteronephrosis, perinephric, or periureteral inflammatory stranding. The urinary bladder is underdistended, but appears normal. Evaluation of solid organs is limited due to lack of intravenous contrast. Liver, spleen, pancreas, adrenal glands unremarkable. Gallbladder surgically absent. No biliary ductal dilatation. No small or large bowel wall thickening or obstruction. The appendix is not definitively visualized, however there is no evidence of acute appendicitis. Uterus anteverted. 3.0 cm simple appearing left ovarian cyst, likely physiologic. No paraovarian fat stranding or fluid to suggest torsion. No free fluid in the abdomen or pelvis. No enlarged abdominal or pelvic lymphadenopathy. No abdominal aortic aneurysm. Lung bases clear. No acute osseous abnormality. Procedure Note Wayne Keith MD - 10/08/2024 CT ABDOMEN AND PELVIS WITHOUT CONTRAST INDICATION: Low back pain, abdominal pain, vomiting TECHNIQUE: Axial images obtained from the lung bases through the proximalfemurs without oral or intravenous contrast. Coronal and sagittalreformats obtained. COMPARISON: None FINDINGS: No nephroureterolithiasis, hydroureteronephrosis, perinephric,or periureteral inflammatory stranding. The urinary bladder isunderdistended, but appears normal. Evaluation of solid organs is limited due to lack of intravenous contrast.Liver, spleen, pancreas, adrenal glands unremarkable. Gallbladdersurgically absent. No biliary ductal dilatation. No small or large bowel wall thickening or obstruction. The appendix isnot definitively visualized, however there is no evidence of acuteappendicitis. Uterus anteverted. 3.0 cm simple appearing left ovarian cyst, likelyphysiologic. No paraovarian fat stranding or fluid to suggest torsion. Nofree fluid in the abdomen or pelvis. No enlarged abdominal or pelviclymphadenopathy. No abdominal aortic aneurysm. Lung bases clear. No acute osseous abnormality. IMPRESSION: No nephroureterolithiasis or acute obstructive uropathy. No acute infectious or inflammatory process in the abdomen or pelvis. 3 cm left ovarian cyst, likely physiologic. No evidence of torsion. This exam was performed with the following dose reduction techniques;automated exposure control and adjustment of milliamperage and/orkilovoltage according to patient size. RS: [id number] Kait Borjas BEADER TENDER IMG CT ORDERABLES Final Result * (ABNORMAL) Urine Microscopic (sediment only) (10/07/2024 9:34 PM EST) WBC 6-10(A) 0 - 2 HPF 10/07/2024 9:47 PM EST [facility] RBC 3-5(A) 0-2 HPF HPF 10/07/2024 9:47 PM EST [facility] Squam Epithelial Moderate(A ) Few HPF 10/07/2024 9:47 PM EST [facility] Mucus Few Few HPF 10/07/2024 9:47 PM EST [facility] Bacteria Few(A) None Seen HPF 10/07/2024 9:47 PM [facility] Urine Urine specimen obtained by clean catch procedure / Unknown Collection / Unknown 10/07/2024 9:34 PM EST 10/07/2024 9:34 PM EST Keesha Olivarez PA-C URINE ORDERABLES Final Result [facility] [address] [place] [phone] * Urine Culture and [place] Count (10/07/2024 9:34 PM EST) Culture 10,000 - 50,000 colonies/ml Mixed Gram Positive Organisms SUSCEPTIBIL ITY TESTING 10/09/2024 11:37 AM EST [facility] Urine Urine specimen obtained by clean catch procedure / Unknown Collection / Unknown 10/07/2024 9:34 PM EST 10/07/2024 9:41 PM EST [facility] - 10/09/2024 11:37 AM EST Organisms present in low colony counts are not considered significant. No further work up will be performed. us Keehsa Olivarez PA-C MICROBIOLOGY - GENERAL ORDERA BLES Final Result [facility] [address] [place] [phone] * (ABNORMAL) Urinalysis, Reflex to Culture (10/07/2024 9:34 PM EST) Color Yellow Colorless, Yellow, Light-Yellow , Dark-Yellow 10/07/2024 9:41 PM [facility] Clarity, UA Turbid(A) Clear 10/07/2024 9:41 PM [facility] Specific [place] 1.025 1.000 - 1.030 10/07/2024 9:41 PM [facility] pH 7.5 5.0 - 8.0 10/07/2024 9:41 PM [facility] Protein 10 Negative, 10 , 20 , 30 mg/dL 10/07/2024 9:41 PM [facility] Glucose Normal Normal, 30 , 50 mg/dL 10/07/2024 9:41 PM [facility] Ketones Trace Negative, Trace mg/dL 10/07/2024 9:41 PM [facility] Blood Negative Negative, 0.03 mg/dL 10/07/2024 9:41 PM [facility] Bilirubin UA Negative Negative mg/dL 10/07/2024 9:41 PM [facility] Urobilinogen Normal Normal mg/dL 10/07/2024 9:41 PM EST [facility] Nitrite Negative Negative 10/07/2024 9:41 PM EST [facility] Leukocyte Esterase 250(A) Negative, 25 John Paul/uL 10/07/2024 9:41 PM EST [facility] Urine Urine specimen obtained by clean catch procedure / Unknown Collection / Unknown 10/07/2024 9:34 PM EST 10/07/2024 9:34 PM EST Narrative [facility] - 10/07/2024 9:41 PM EST A urine culture is being performed on this specimen due to established reflex criteria Keesha Banna PA-C URINE ORDERABLES Final Result Performing Organization Address [facility]/ZIP Co de Phone Number [facility] [address] [place] [phone] * hCG, serum, qualitative (10/07/2024 6:39 PM EST) hCG Qual Negative Negative 10/07/2024 7:03 PM EST [facility] Blood Venipuncture / Unknown 10/07/2024 6:39 PM EST 10/07/2024 6:42 PM EST Keesha eParachutena PA-C LAB BLOOD ORDERABLES Final Re sult Performing Organization Address [facility]/ZIP Co de Phone Number [facility] [address] [place] [phone] * Lipase (10/07/2024 6:39 PM EST) Lipase 38 12 - 53 U/L 10/07/2024 7:04 PM EST [facility] Blood Venipuncture / Unknown 10/07/2024 6:39 PM EST 10/07/2024 6:42 PM EST Keesha eParachutena PA-C LAB BLOOD ORDERABLES Final Re sult Performing Organization Address City/[facility]/ZIP Co de Phone Number [facility] [address] [place] [phone] * (ABNORMAL) Comprehensive metabolic panel (10/07/2024 6:39 PM EST) Sodium 141 136 - 145 mEq/L 10/07/2024 7:04 PM [facility] Potassium 3.9 3.5 - 5.1 mEq/L 10/07/2024 7:04 PM [facility] Chloride 104 98 - 109 mEq/L 10/07/2024 7:04 PM [facility] CO2 25 20 - 31 mEq/L 10/07/2024 7:04 PM [facility] Anion Gap 12 4 - 15 mEq/L 10/07/2024 7:04 PM [facility] Glucose 101(H) 70 - 100 mg/dL 10/07/2024 7:04 PM [facility] Creatinine 1.19(H) 0.50 - 1.00 mg/dL 10/07/2024 7:04 PM [facility] eGFR (Female) >60 60 - 115 mL/min 10/07/2024 7:04 PM [facility] BUN 10 9 - 23 mg/dL 10/07/2024 7:04 PM [facility] Calcium 10.0 8.3 - 10.6 mg/dL 10/07/2024 7:04 PM [facility] Total Protein 8.3(H) 5.7 - 8.2 g/dL 10/07/2024 7:04 PM [facility] Albumin 5.4(H) 3.2 - 4.8 g/dL 10/07/2024 7:04 PM [facility] A/G Ratio 1.9 1.0 - 2.3 10/07/2024 7:04 PM [facility] Total Bilirubin 0.5 0.2 - 1.0 mg/dL 10/07/2024 7:04 PM [facility] AST 20 13 - 40 U/L 10/07/2024 7:04 PM [facility] Alkaline Phosphatase 77 46 - 116 IU/L 10/07/2024 7:04 PM [facility] ALT 24 7 - 40 U/L 10/07/2024 7:04 PM EST [facility] Blood Venipuncture / Unknown 10/07/2024 6:39 PM EST 10/07/2024 6:42 PM EST [facility] - 10/07/2024 7:04 PM EST The calcium reference range has been changed as of 08/21/2024. us Keesha Olivarez PA-C LAB BLOOD ORDERABLES Final Re sult [facility] [address] [place] [address] * (ABNORMAL) CBC and Auto Differential (10/07/2024 6:39 PM EST) WBC 11.6(H) 4.8 - 11.2 10*3/??L 10/07/2024 6:45 PM EST [facility] RBC 5.42(H) 3.60 - 5.40 10*6/??L 10/07/2024 6:45 PM [facility] HGB 15.8 12.0 - 15.8 g/dL 10/07/2024 6:45 PM [facility] HCT 46.4 36.0 - 48.0 % 10/07/2024 6:45 PM [facility] MCV 85.7 82.0 - 98.0 fL 10/07/2024 6:45 PM EST [facility] MCH 29.1 27.0 - 35.0 pg 10/07/2024 6:45 PM [facility] MCHC 34.0 32.0 - 37.0 g/dL 10/07/2024 6:45 PM [facility] RDW 12.4 12.0 - 15.0 % 10/07/2024 6:45 PM [facility] PLT 367 150 - 400 10*3/??L 10/07/2024 6:45 PM [facility] MPV 8.2 7.0 - 14.0 fL 10/07/2024 6:45 PM EST [facility] Neut % 51.4 45.0 - 85.0 % 10/07/2024 6:45 PM EST [facility] Lymph % 35.9 15.0 - 45.0 % 10/07/2024 6:45 PM EST [facility] [place] % 10.9 0.0 - 12.0 % 10/07/2024 6:45 PM EST [facility] Eos % 1.4 0.0 - 7.0 % 10/07/2024 6:45 PM EST [facility] Baso % 0.4 0.0 - 3.0 % 10/07/2024 6:45 PM EST [facility] NRBC% 0 0 /100 WBC /100 WBC 10/07/2024 6:45 PM EST [facility] Neut # 6.0 2.2 - 9.5 10*3/??L 10/07/2024 6:45 PM EST [facility] Lym # 4.2 0.7 - 5.0 10*3/??L 10/07/2024 6:45 PM EST [facility] [place] # 1.3 0.0 - 1.3 10*3/??L 10/07/2024 6:45 PM EST [facility] [facility] Eos # 0.2 0.0 - 0.4 10*3/??L 10/07/2024 6:45 PM EST [facility] Baso # 0.0 0.0 - 0.3 10*3/??L 10/07/2024 6:45 PM EST [facility] Blood Venipuncture / Unknown 10/07/2024 6:39 PM EST 10/07/2024 6:42 PM EST us Keesha Olivarez PA-C LAB BLOOD ORDERABLES Final Re sult [facility] [address] [place] [address] documented in this encounter Visit Diagnoses Diagnosis Cystitis- Primary Unspecified cystitis documented in this encounter Administered Medications Inactive Administered Medications - up to 3 most recent administrations Medication Order MAR Action Action Date Dose Rate Site cefTRIAXone (ROCEPHIN) 1 g in sodium chloride (NS) 0.9 % 100 mL IVPB Mini-Bag 1 g, Intravenous, Administer over 30 Minutes, Once, On 10/07/24 at 2231, For 1 dose, Activate bag to mix drug. Invert the bag to force air into vial and allow all the drug solution to enter the mini-bag before administration., Indications: Urinary Tract InfectionIndications:Urinar y Tract Infection New Bag 10/07/2024 10:59 PM EST 1 g 200 mL/hr ketorolac (TORADOL) injection 15 mg 15 mg, Intravenous, Once, On 10/07/24 at 2126, For 1 dose Given 10/07/2024 9:38 PM EST 15 mg ondansetron (ZOFRAN) injection 4 mg 4 mg, Intravenous, Once, On 10/07/24 at 2126, For 1 dose Given 10/07/2024 9:39 PM EST 4 mg sodium chloride (NS) 0.9 % bolus 1,000 mL 1,000 mL, Intravenous, Administer over 30 Minutes, Once, On 10/07/24 at 2133, For 1 dose New Bag 10/07/2024 9:53 PM EST 1,000 mL 2000 mL/hr documented in this encounter Active and Recently Administered Medications Times are shown in EST. Scheduled Medication Order 10/05/2024 10/06/2024 10/07/2024 cefTRIAXone (ROCEPHIN) 1 g in sodium chloride (NS) 0.9 % 100 mL IVPB Mini-Bag (COMPLETED) 1 g, Intravenous, Administer over 30 Minutes, Once, On 10/07/24 at 2231, For 1 dose, Activate bag to mix drug. Invert the bag to force air into vial and allow all the drug solution to enter the mini-bag before administration., Indications: Urinary Tract Infection 2258 (New Bag - Prov ider: Beverley Jensen RN)2334 (Stopped - Provider: Beverley Jensen RN) ketorolac (TORADOL) injection 15 mg (COMPLETED) 15 mg, Intravenous, Once, On 10/07/24 at 2126, For 1 dose 2138 (Given - Provid er: Beverley Jensen, LUCAS) ondansetron (ZOFRAN) injection 4 mg (COMPLETED) 4 mg, Intravenous, Once, On 10/07/24 at 2126, For 1 dose 2138 (Given - Provid er: Beverley Jensen, LUCAS) sodium chloride (NS) 0.9 % bolus 1,000 mL (COMPLETED) 1,000 mL, Intravenous, Administer over 30 Minutes, Once, On 10/07/24 at 2133, For 1 dose 2152 (New Bag - Prov ider: Brian Aparicio RN)2252 (Stopped - Provider: Beverley Jensen RN) documented in this encounter Care Teams Direct Service Professional Relationship Specialty [place] [id number] PCP - General 10/07/24 documented as of this encounter
--- OUTSIDE RECORDS SUMMARY | 2024-10-24 10:27 | XMS_ITS | Encounter Summary ---
Author Organization [facility] Address [address] [place] [address] Care Team Providers Care Seam Finisher Name Role Phone Pcp, No Primary Care Provider Unavailabl e Encounter Details Date Type Department Care Team (Latest Contact Info) Description 10/07/2024 Travel Social History Tobacco Use Types Packs/Day Years [...] on filedocumented in this encounter Care Teams Seam Finisher Relationship Specialty Start [place] [id number] PCP - General 10/07/24 documented as of this encounter
--- OUTSIDE RECORDS SUMMARY | 2024-10-24 10:27 | XMS_ITS | Clinical Summary ---
Author Organization [facility] Address [address] [place] [address] Care Team Providers Care Rapid Extractor Operator Name Role Phone No, Pcp [employer] Primary Care Provider Unavailabl e Allergies Active Allergy Reactions Criticality Noted Date Comments Penicillins Rash Low 02/27/2020 Rash and GI upset Medications No known medications Immunizations Name Administration Dates Next Due PPD Test 02/27/2020 Social History Tobacco Use Types Packs/Day Years Used Date Smoking Tobacco: Never Assessed Comments Unknown Sex and Gender Information Value Date Recorded Sex Assigned at Not on file Legal Sex Female 2:55 PM EDT Gender Identity Not on file Sexual Orientation Not on file Plan of Treatment Health Maintenance Due Date Last Done Comments Depression: Screening Annually using PHQ-2/9 in Adults 18 yrs or above (or HM Modifier)([facility]) 2015 Hepatitis C Virus Infection in Adolescents and Adults: Screening (or Modifier) ([facility]) 2015 SDOH Screening Reminder: Annually for all adults ([facility]) 2015 Tobacco Smoking Cessation: i n Adults excluding Women: Behavioral and Pharmacotherapy Interventions ([facility]) 2015 Lipid Screening: Once for Women aged 20 to 45 yrs ([facility]) 2017 Cervical Cancer Screenin-65 yrs of age (or Modifier) 2018 Cervical Cancer Screening: Pap every 3 yrs pts age 21-65 2018 Cervical Cancer: Pap Screening with Modifier timing ([facility]) 2018 Cervical Cancer: hrHPV alone or with cotesting Pap for Pts 30-65yrs screening every 5yrs ([facility]) 2018 DTaP/Tdap/Td Vaccines ([facility]) (7 - Td or Tdap) 08/02/2018 08/02/2008, 07/31/2002, 12/26/1998, Additional history exists Flu Vaccination: Yearly for ages 18mos through 64 years (or Modifier)([facility]) 04/26/2024 COVID-19 Vaccine Screening: Initial Series and Booster Status ([facility]) (2023- season) 2024 Zoster/Shingles Vaccine Series Screening: Adults aged 18+ yrs (or HM Modifiers)([facility]) (1 of 2) 2047 08/02/2008, 07/24/1998 Pneumococcal Vaccination Screening: Pts 0-19 & 19-64 yrs of age ([facility]) Aged Out No longer eligible based on patient's age to complete this topic Medical Devices Not on file Insurance [facility] Care Teams Rapid Extractor Operator Relationship Specialty Start Date End Date No, Pcp, [employer] N/A Do not use PCP - General Family Medicine 02/27/20
--- OUTSIDE RECORDS SUMMARY | 2024-10-24 10:27 | XMS_ITS | Clinical Summary ---
Author Organization [facility] Address [address] [place] [address] Care Team Providers Care Barrel Rifler Broach Name Role Phone Pcp, No Primary Care Provider Unavailabl e Allergies Active Allergy Reactions Criticality Noted Date Comments Penicillins Rash Low 10/07/2024 Seafood (Not Shellfish) - Food Allergy Rash Low 10/07/2024 Medications ondansetron (ZOFRAN) 4 MG tablet Take 1 tablet (4 mg total) by mouth every 6 (six) hours for 10 days 12 tablet 10/07/2024 Active cefuroxime 250 MG tablet Take 1 tablet (250 mg total) by mouth every 12 (twelve) hours for 7 days 14 tablet 10/07/2024 5 Encounters Date Type Department Care Team Description 10/07/2024 8:02 PM EST - 10/07/2024 11:57 PM EST Emergency [address] [phone] Keesha Olivarez PA-C LaRock, Alicia, NP Cystitis (Primary Dx) Discharge Disposition: Home or Self Care 10/07/2024 Travel 10/07/2024 Procedure Pass [address] [phone] from Last 3 Months Social History Tobacco Use Types Packs/Day Years [...] Mass Index 26.63 10/07/2024 6:24 PM EST Plan of Treatment Health Maintenance Due Date Last Done Comments Annual Physical 2000 Hepatitis B Screening 2015 DTaP,Tdap,and Td Vaccines (7 - Td or Tdap) 08/02/2018 08/02/2008, 07/31/2002, 12/26/1998, Additional history exists COVID-19 Vaccine ( season) 2024 Influenza Vaccine (#1) 2024 5, 06/29/2014, 07/16/2013, Additional history exists HIB Vaccines Completed 10/24/1998, 12/1997, 1997, Additional history exists Hepatitis A Vaccine Completed 05/20/2016, 6 Pneumococcal Vaccines 0-64 yrs (includes High Risk) Aged Out No longer eligi ble based on patient's age to complete this topic Procedures Procedure Name Priority Date/Time Associated Diagnosis Comments CT RENAL FOR STONES STAT 10/07/2024 1 0:43 PM EST URINE MICROSCOPIC (SEDIMENT ONLY) STAT 10/07/2024 9:34 PM EST URINALYSIS, REFLEX TO CULTURE STAT 10/07/2024 9:34 PM EST URINE CULTURE AND COLONY COUNT STAT 10/07/2024 9:34 PM EST HCG QUALITATIVE SERUM STAT 10/07/2024 6:39 PM EST LIPASE STAT 10/07/2024 6:39 PM EST COMPREHENSIVE METABOLIC PANEL STAT 10/07/2024 6:39 PM EST CBC AND AUTO DIFFERENTIAL STAT 10/07/2024 6:39 PM EST from Last 3 Months Results * CT renal for stones (10/07/2024 [...] and/or kilovoltage according to patient size. RS: [id number] Narrative 10/08/2024 7:[address] ABDOMEN [...] milliamperage and/orkilovoltage according to patient size. RS: [id number] Kait Borjas NP [facility] CT ORDERABLES Final Result * (ABNORMAL) Urine Microscopic (sediment only) (10/07/2024 9:34 PM EST) WBC 6-10(A) 0 - 2 HPF 10/07/2024 9:47 PM [facility] RBC 3-5(A) 0-2 HPF HPF 10/07/2024 9:47 PM EST [facility] Squam Epithelial Moderate(A ) Few HPF 10/07/2024 9:47 PM EST [facility] Mucus Few Few HPF 10/07/2024 9:47 PM [facility] Bacteria Few(A) None Seen HPF 10/07/2024 9:47 PM [facility] Urine Urine specimen obtained by clean catch procedure / Unknown Collection / Unknown 10/07/2024 9:34 PM EST 10/07/2024 9:34 PM EST us Keesha Olivarez PA-C URINE ORDERABLES Final Result [facility] [address] [place] [address] * (ABNORMAL) Urinalysis, Reflex to Culture (10/07/2024 9:34 PM EST) Color Yellow Colorless, Yellow, Light-Yellow , Dark-Yellow 10/07/2024 9:41 PM [facility] Clarity, UA Turbid(A) Clear 10/07/2024 9:41 PM [facility] Specific [place] 1.025 1.000 - 1.030 10/07/2024 9:41 PM [facility] pH 7.5 5.0 - 8.0 10/07/2024 9:41 PM [facility] Protein 10 Negative, 10 , 20 , 30 mg/dL 10/07/2024 9:41 PM [facility] Glucose Normal Normal, 30 , 50 mg/dL 10/07/2024 9:41 PM [facility] Ketones Trace Negative, Trace mg/dL 10/07/2024 9:41 PM [facility] Blood Negative Negative, 0.03 mg/dL 10/07/2024 9:41 PM [facility] Bilirubin UA Negative Negative mg/dL 10/07/2024 9:41 PM [facility] Urobilinogen Normal Normal mg/dL 10/07/2024 9:41 PM [facility] Nitrite Negative Negative 10/07/2024 9:41 PM [facility] Leukocyte Esterase 250(A) Negative, 25 John Paul/uL 10/07/2024 9:41 PM [facility] Urine Urine specimen obtained by clean catch procedure / Unknown Collection / Unknown 10/07/2024 9:34 PM EST 10/07/2024 9:34 PM EST [facility] - 10/07/2024 9:41 PM EST A urine culture is being performed on this specimen due to established reflex criteria Keesha Olivarez PA-C URINE ORDERABLES Final Result Performing Organization Address [facility]/ZIP Co de Phone Number [facility] [address] [place] [address] * Urine Culture and Datto Count (10/07/2024 9:34 PM EST) Pathologist [facility] Culture 10,000 - 50,000 colonies/ml Mixed Gram Positive Organisms SUSCEPTIBIL ITY TESTING 10/09/2024 11:37 AM EST [facility] Urine Urine specimen obtained by clean catch procedure / Unknown Collection / Unknown 10/07/2024 9:34 PM EST 10/07/2024 9:41 PM EST Narrative [facility] - 10/09/2024 11:37 AM EST Organisms present in low colony counts are not considered significant. No further work up will be performed. Keesha Olivarez PA-C MICROBIOLOGY - GENERAL ORDERA BLES Final Result Performing Organization Address [facility]/ZIP Co de Phone Number [facility] [address] [place] [address] * (ABNORMAL) CBC and Auto Differential (10/07/2024 6:39 PM EST) WBC 11.6(H) 4.8 - 11.2 10*3/??L 10/07/2024 6:45 PM EST [facility] RBC 5.42(H) 3.60 - 5.40 10*6/??L 10/07/2024 6:45 PM EST [facility] HGB 15.8 12.0 - 15.8 g/dL 10/07/2024 6:45 PM EST [facility] HCT 46.4 36.0 - 48.0 % 10/07/2024 6:45 PM EST [facility] MCV 85.7 82.0 - 98.0 fL 10/07/2024 6:45 PM EST [facility] MCH 29.1 27.0 - 35.0 pg 10/07/2024 6:45 PM [facility] MCHC 34.0 32.0 - 37.0 g/dL 10/07/2024 6:45 PM [facility] RDW 12.4 12.0 - 15.0 % 10/07/2024 6:45 PM [facility] PLT 367 150 - 400 10*3/??L 10/07/2024 6:45 PM [facility] MPV 8.2 7.0 - 14.0 fL 10/07/2024 6:45 PM [facility] Neut % 51.4 45.0 - 85.0 % 10/07/2024 6:45 PM [facility] Lymph % 35.9 15.0 - 45.0 % 10/07/2024 6:45 PM [facility] [place] % 10.9 0.0 - 12.0 % 10/07/2024 6:45 PM [facility] Eos % 1.4 0.0 - 7.0 % 10/07/2024 6:45 PM [facility] Baso % 0.4 0.0 - 3.0 % 10/07/2024 6:45 PM [facility] NRBC% 0 0 /100 WBC /100 WBC 10/07/2024 6:45 PM [facility] Neut # 6.0 2.2 - 9.5 10*3/??L 10/07/2024 6:45 PM [facility] Lym # 4.2 0.7 - 5.0 10*3/??L 10/07/2024 6:45 PM [facility] [place] # 1.3 0.0 - 1.3 10*3/??L 10/07/2024 6:45 PM [facility] Eos # 0.2 0.0 - 0.4 10*3/??L 10/07/2024 6:45 PM [facility] Baso # 0.0 0.0 - 0.3 10*3/??L 10/07/2024 6:45 PM [facility] Blood Venipuncture / Unknown 10/07/2024 6:39 PM EST 10/07/2024 6:42 PM EST Keesha Banna PA-C LAB BLOOD ORDERABLES Final Re sult Performing Organization Address [facility]/ZIP Co de Phone Number [facility] [address] [place] [phone] * hCG, serum, qualitative (10/07/2024 6:39 PM EST) hCG Qual Negative Negative 10/07/2024 7:03 PM EST [facility] Blood Venipuncture / Unknown 10/07/2024 6:39 PM EST 10/07/2024 6:42 PM EST Keesha Banna PA-C LAB BLOOD ORDERABLES Final Re sult Performing Organization Address [facility]/ZIP Co de Phone Number [facility] [address] [place] [phone] * Lipase (10/07/2024 6:39 PM EST) Pathologist [facility] Lipase 38 12 - 53 U/L 10/07/2024 7:04 PM EST [facility] Blood Venipuncture / Unknown 10/07/2024 6:39 PM EST 10/07/2024 6:42 PM EST Keesha Banna PA-C LAB BLOOD ORDERABLES Final Re sult Performing Organization Address [facility]/ZIP Co de Phone Number [facility] [address] [place] [phone] * (ABNORMAL) Comprehensive metabolic panel (10/07/2024 6:39 PM EST) Pathologist [facility] Sodium 141 136 - 145 mEq/L 10/07/2024 7:04 PM EST [facility] Potassium 3.9 3.5 - 5.1 mEq/L 10/07/2024 7:04 PM EST [facility] Chloride 104 98 - 109 mEq/L 10/07/2024 7:04 PM [facility] CO2 25 20 - 31 mEq/L 10/07/2024 7:04 PM [facility] Anion Gap 12 4 - 15 mEq/L 10/07/2024 7:04 PM [facility] Glucose 101(H) 70 - 100 mg/dL 10/07/2024 7:04 PM [facility] Creatinine 1.19(H) 0.50 - 1.00 mg/dL 10/07/2024 7:04 PM [facility] eGFR (Female) >60 60 - 115 mL/min 10/07/2024 7:04 PM [facility] BUN 10 9 - 23 mg/dL 10/07/2024 7:04 PM [facility] Calcium 10.0 8.3 - 10.6 mg/dL 10/07/2024 7:04 PM [facility] Total Protein 8.3(H) 5.7 - 8.2 g/dL 10/07/2024 7:04 PM [facility] Albumin 5.4(H) 3.2 - 4.8 g/dL 10/07/2024 7:04 PM [facility] A/G Ratio 1.9 1.0 - 2.3 10/07/2024 7:04 PM [facility] Total Bilirubin 0.5 0.2 - 1.0 mg/dL 10/07/2024 7:04 PM [facility] AST 20 13 - 40 U/L 10/07/2024 7:04 PM [facility] Alkaline Phosphatase 77 46 - 116 IU/L 10/07/2024 7:04 PM [facility] ALT 24 7 - 40 U/L 10/07/2024 7:04 PM [facility] Blood Venipuncture / Unknown 10/07/2024 6:39 PM EST 10/07/2024 6:42 PM EST [facility] - 10/07/2024 7:04 PM EST The calcium reference range has been changed as of 08/21/2024. us Keesha Olivarez PA-C LAB BLOOD ORDERABLES Final Re sult [facility] [address] [place] [address] from Last 3 Months Insurance [facility] Care Teams Barrel Rifler Broach Relationship Specialty Start [place] [phone] PCP - General 10/07/24
== END 2024-10-24 12:05 | disposition home or self-care (01) ==
PROVIDERS: PCP Internal Medicine; Visit Provider Internal Medicine
DX: R30.0 Dysuria (principal); R10.9 Unspecified abdominal pain

== ENCOUNTER 2024-10-24 09:03 | Outpatient (REF) | payer OTHER, SELFPAY ==
--- OUTSIDE RECORDS SUMMARY | 2024-10-24 11:36 | XMS_ITS | Encounter Summary ---
Author Organization [facility] Address [address] [place] [address] Care Team Providers Care Card Player Name Role Phone Pcp, No Primary Care Provider Unavailabl e Encounter Details Date Type Department Care Team (Late st Contact Info) Description 10/07/2024 Procedure Pass [facility] - [address] [phone] Social History Tobacco Use Types [...] on filedocumented in this encounter Care Teams Card Player Relationship Specialty Start Date End Date Pcp, Cris [id number] PCP - General 10/07/24 documented as of this encounter
--- OUTSIDE RECORDS SUMMARY | 2024-10-24 11:36 | XMS_ITS | Clinical Summary ---
Author Organization [facility] Address [address] [place], [place] [phone] Phone Care Team Providers Care Crystal Grower Name Role Phone Elsy Kitchen MD Primary [...] age to complete this topic Care Teams Crystal Grower Relationship Specialty Start Date End Date Elsy Kitchen MD [address] [place] [phone] PCP - General 05/02/17
--- OUTSIDE RECORDS SUMMARY | 2024-10-24 11:36 | XMS_ITS | Encounter Summary ---
[facility] Organization [facility] Address [address] [place] [address] Care Team Providers Care Core Blower Operator Name Role Phone Pcp, No Primary Care Provider Unavailabl e Reason for Visit * Reason Comments Back Pain Abdominal Pain Vomiting Encounter Details Date Type Department Care Team (Late st Contact Info) Description 10/07/2024 8:02 PM EST - 10/07/2024 11:57 PM EST Emergency [facility] [address] [place] [phone] Keesha Olivarez PA-C [address] [place] [address] Kait Borjas NP [address] [place] [phone] Cystitis (Primary Dx) Discharge Disposition: Home or [...] sent through Care Everywhere. * Acute Cystitis (Panamanian) documented in this encounter Medications at Time [...] m) Body mass index is 26.63 kg/m??. Buckner body weight: 61.6 kg (135 lb 12.9 [...] on file Progress LAMS Score: 0 (10/07/24 7548) Medical Decision Making Patient is a non-toxic [...] and/or kilovoltage according to patient size. RS: [id number] Narrative 10/08/2024 7:[address] ABDOMEN [...] milliamperage and/orkilovoltage according to patient size. RS: [id number] Kait Borjas DEEP FRYER ASSEMBLER IMG CT ORDERABLES Final Result * (ABNORMAL) Urine Microscopic (sediment only) (10/07/2024 9:34 PM EST) WBC 6-10(A) 0 - 2 HPF 10/07/2024 9:47 PM EST [facility] RBC 3-5(A) 0-2 HPF HPF 10/07/2024 9:47 PM EST [facility] Squam Epithelial Moderate(A ) Few HPF 10/07/2024 9:47 PM EST [facility] Mucus Few Few HPF 10/07/2024 9:47 PM EST [facility] Bacteria Few(A) None Seen HPF 10/07/2024 9:47 PM [facility] Urine Urine specimen obtained by clean catch procedure / Unknown Collection / Unknown 10/07/2024 9:34 PM EST 10/07/2024 9:34 PM EST Keesha Olivarez PA-C URINE ORDERABLES Final Result [facility] [address] [place] [phone] * Urine Culture and [place] Count (10/07/2024 9:34 PM EST) Culture 10,000 - 50,000 colonies/ml Mixed Gram Positive Organisms SUSCEPTIBIL ITY TESTING 10/09/2024 11:37 AM EST [facility] Urine Urine specimen obtained by clean catch procedure / Unknown Collection / Unknown 10/07/2024 9:34 PM EST 10/07/2024 9:[address] [facility] - 10/09/2024 11:37 AM EST Organisms present in low colony counts are not considered significant. No further work up will be performed. us Keesha Olivarez PA-C MICROBIOLOGY - GENERAL ORDERA BLES Final Result [facility] [address] [place] [address] * (ABNORMAL) Urinalysis, Reflex to Culture (10/07/2024 9:34 PM EST) Color Yellow Colorless, Yellow, Light-Yellow , Dark-Yellow 10/07/2024 9:41 PM [facility] Clarity, UA Turbid(A) Clear 10/07/2024 9:41 PM [facility] Specific [place] 1.025 1.000 - 1.030 10/07/2024 9:41 PM [facility] pH 7.5 5.0 - 8.0 10/07/2024 9:41 PM [facility] Protein 10 Negative, 10 , 20 , 30 mg/dL 10/07/2024 9:41 PM [facility] Glucose Normal Normal, 30 , 50 mg/dL 10/07/2024 9:41 PM [facility] Ketones Trace Negative, Trace mg/dL 10/07/2024 9:41 PM [facility] Blood Negative Negative, 0.03 mg/dL 10/07/2024 9:41 PM [facility] Bilirubin UA Negative Negative mg/dL 10/07/2024 9:41 PM [facility] Urobilinogen Normal Normal mg/dL 10/07/2024 9:41 PM EST [facility] Nitrite Negative Negative 10/07/2024 9:41 PM EST [facility] Leukocyte Esterase 250(A) Negative, 25 John Paul/uL 10/07/2024 9:41 PM EST [facility] Urine Urine specimen obtained by clean catch procedure / Unknown Collection / Unknown 10/07/2024 9:34 PM EST 10/07/2024 9:34 PM EST Narrative [facility] - 10/07/2024 9:41 PM EST A urine culture is being performed on this specimen due to established reflex criteria Keesha Banna PA-C URINE ORDERABLES Final Result Performing Organization Address [facility]/ZIP Co de Phone Number [facility] [address] [place] [address] * hCG, serum, qualitative (10/07/2024 6:39 PM EST) hCG Qual Negative Negative 10/07/2024 7:03 PM EST [facility] Blood Venipuncture / Unknown 10/07/2024 6:39 PM EST 10/07/2024 6:42 PM EST Keesha nGamena PA-C LAB BLOOD ORDERABLES Final Re sult Performing Organization Address [facility]/ZIP Co de Phone Number [facility] [address] [place] [address] * Lipase (10/07/2024 6:39 PM EST) Lipase 38 12 - 53 U/L 10/07/2024 7:04 PM EST [facility] Blood Venipuncture / Unknown 10/07/2024 6:39 PM EST 10/07/2024 6:42 PM EST Keesha nGamena PA-C LAB BLOOD ORDERABLES Final Re sult Performing Organization Address City/[facility]/ZIP Co de Phone Number [facility] [address] [place] [address] * (ABNORMAL) Comprehensive metabolic panel (10/07/2024 6:39 PM EST) Sodium 141 136 - 145 mEq/L 10/07/2024 7:04 PM [facility] Potassium 3.9 3.5 - 5.1 mEq/L 10/07/2024 7:04 PM [facility] Chloride 104 98 - 109 mEq/L 10/07/2024 7:04 PM [facility] CO2 25 20 - 31 mEq/L 10/07/2024 7:04 PM [facility] Anion Gap 12 4 - 15 mEq/L 10/07/2024 7:04 PM [facility] Glucose 101(H) 70 - 100 mg/dL 10/07/2024 7:04 PM [facility] Creatinine 1.19(H) 0.50 - 1.00 mg/dL 10/07/2024 7:04 PM [facility] eGFR (Female) >60 60 - 115 mL/min 10/07/2024 7:04 PM [facility] BUN 10 9 - 23 mg/dL 10/07/2024 7:04 PM [facility] Calcium 10.0 8.3 - 10.6 mg/dL 10/07/2024 7:04 PM [facility] Total Protein 8.3(H) 5.7 - 8.2 g/dL 10/07/2024 7:04 PM [facility] Albumin 5.4(H) 3.2 - 4.8 g/dL 10/07/2024 7:04 PM [facility] A/G Ratio 1.9 1.0 - 2.3 10/07/2024 7:04 PM [facility] Total Bilirubin 0.5 0.2 - 1.0 mg/dL 10/07/2024 7:04 PM [facility] AST 20 13 - 40 U/L 10/07/2024 7:04 PM [facility] Alkaline Phosphatase 77 46 - 116 IU/L 10/07/2024 7:04 PM [facility] ALT 24 7 - 40 U/L 10/07/2024 7:04 PM EST [facility] Blood Venipuncture / Unknown 10/07/2024 6:39 PM EST 10/07/2024 6:42 PM EST [facility] - 10/07/2024 7:04 PM EST The calcium reference range has been changed as of 08/21/2024. us Keesha Olivarez PA-C LAB BLOOD ORDERABLES Final Re sult [facility] [address] [place] [address] * (ABNORMAL) CBC and Auto Differential (10/07/2024 6:39 PM EST) WBC 11.6(H) 4.8 - 11.2 10*3/??L 10/07/2024 6:45 PM EST [facility] RBC 5.42(H) 3.60 - 5.40 10*6/??L 10/07/2024 6:45 PM [facility] HGB 15.8 12.0 - 15.8 g/dL 10/07/2024 6:45 PM [facility] HCT 46.4 36.0 - 48.0 % 10/07/2024 6:45 PM [facility] MCV 85.7 82.0 - 98.0 fL 10/07/2024 6:45 PM EST [facility] MCH 29.1 27.0 - 35.0 pg 10/07/2024 6:45 PM [facility] MCHC 34.0 32.0 - 37.0 g/dL 10/07/2024 6:45 PM [facility] RDW 12.4 12.0 - 15.0 % 10/07/2024 6:45 PM [facility] PLT 367 150 - 400 10*3/??L 10/07/2024 6:45 PM [facility] MPV 8.2 7.0 - 14.0 fL 10/07/2024 6:45 PM EST [facility] Neut % 51.4 45.0 - 85.0 % 10/07/2024 6:45 PM EST [facility] Lymph % 35.9 15.0 - 45.0 % 10/07/2024 6:45 PM EST [facility] [place] % 10.9 0.0 - 12.0 % 10/07/2024 6:45 PM EST [facility] Eos % 1.4 0.0 - 7.0 % 10/07/2024 6:45 PM EST [facility] Baso % 0.4 0.0 - 3.0 % 10/07/2024 6:45 PM EST [facility] NRBC% 0 0 /100 WBC /100 WBC 10/07/2024 6:45 PM EST [facility] Neut # 6.0 2.2 - 9.5 10*3/??L 10/07/2024 6:45 PM EST [facility] Lym # 4.2 0.7 - 5.0 10*3/??L 10/07/2024 6:45 PM EST [facility] [place] # 1.3 0.0 - 1.3 10*3/??L 10/07/2024 6:45 PM EST [facility] Eos # 0.2 0.0 - 0.4 10*3/??L 10/07/2024 6:45 PM EST [facility] Baso # 0.0 0.0 - 0.3 10*3/??L 10/07/2024 6:45 PM EST [facility] Blood Venipuncture / Unknown 10/07/2024 6:39 PM EST 10/07/2024 6:42 PM EST us Keesha Olivarez PA-C LAB BLOOD ORDERABLES Final Re sult [facility] [address] [place] [address] documented in this encounter Visit [...] RN) documented in this encounter Care Teams Core Blower Operator Relationship Specialty [place] [id number] PCP - General 10/07/24 documented as of this encounter
--- OUTSIDE RECORDS SUMMARY | 2024-10-24 11:36 | XMS_ITS | Encounter Summary ---
Author Organization [facility] Address [address] [place] [address] Care Team Providers Care Switch Maker Name Role Phone Pcp, No Primary Care [...] on filedocumented in this encounter Care Teams Switch Maker Relationship Specialty [place] [id number] PCP - General 10/07/24 documented as of this encounter
--- OUTSIDE RECORDS SUMMARY | 2024-10-24 11:36 | XMS_ITS | Encounter Summary ---
Author Organization [facility] Address [address] [place] [phone] Phone Care Team Providers Care Brick Chimney Builder Name Role Phone Elsy Kitchen MD Primary Care Pro vider Encounter Details Date Type Department Care Team (Late st Contact Info) Description 11/24/2017 Conversion Encounter [facility] [address] [phone] Elsy Kitchen MD [address] [phone] Social History Tobacco Use Types Packs/Day Years [...] on filedocumented in this encounter Care Teams Brick Chimney Builder Relationship Specialty Start Date End Date Elsy Kitchen MD [address] [phone] PCP - General 05/02/17 documented as of this encounter
--- OUTSIDE RECORDS SUMMARY | 2024-10-24 11:36 | XMS_ITS | Clinical Summary ---
Author Organization [facility] [employer] [facility] Address [address] [place] [address] Care Team Providers Care Leasing Property Manager Name Role Phone No, Pcp ATTRACTION ATTENDANT Primary Care Provider Unavailabl e Allergies Active [...] Adults 18 yrs or above (or HM Modifier)([facility]) 2015 Hepatitis C Virus Infection in Adolescents and Adults: Screening (or Modifier) ([facility]) 2015 SDOH Screening Reminder: Annually for all adults ([facility]) 2015 Tobacco Smoking Cessation: i n Adults excluding Women: Behavioral and Pharmacotherapy Interventions ([facility]) 2015 Lipid Screening: Once for Women aged 20 to 45 yrs ([facility]) 2017 Cervical Cancer Screenin-65 yrs of age (or Modifier) 2018 Cervical Cancer Screening: Pap every 3 yrs pts age 21-65 2018 Cervical Cancer: Pap Screening with Modifier timing ([facility]) 2018 Cervical Cancer: hrHPV alone or with cotesting Pap for Pts 30-65yrs screening every 5yrs ([facility]) 2018 DTaP/Tdap/Td Vaccines ([facility]) (7 - Td or Tdap) 08/02/2018 08/02/2008, 07/31/2002, 12/26/1998, Additional history exists Flu Vaccination: Yearly for ages 18mos through 64 years (or Modifier)([facility]) 04/26/2024 COVID-19 Vaccine Screening: Initial Series and Booster Status ([facility]) (2023- season) 2024 Zoster/Shingles Vaccine Series Screening: Adults aged 18+ yrs (or HM Modifiers)([facility]) (1 of 2) 2047 08/02/2008, 07/24/1998 Pneumococcal Vaccination Screening: Pts 0-19 & 19-64 yrs of age ([facility]) Aged Out No longer eligible based on patient's age to complete this topic Medical Devices Not on file Insurance [facility] Care Teams Leasing Property Manager Relationship Specialty Start Date End Date No, Pcp, ATTRACTION ATTENDANT N/A Do not use PCP - General Family Medicine 02/27/20
--- OUTSIDE RECORDS SUMMARY | 2024-10-24 11:36 | XMS_ITS | Clinical Summary ---
Author Organization [facility] Address [address] [place] [address] Care Team Providers Care Carbonation Tester Name Role Phone Pcp, No Primary Care [...] EST - 10/07/2024 11:57 PM EST Emergency [address] [phone] Keesha Olivarez PA-C LaRock, Alicia, NP Cystitis (Primary Dx) Discharge Disposition: Home or Self Care 10/07/2024 Travel 10/07/2024 Procedure Pass [address] [phone] from Last 3 Months Social History Tobacco [...] and/or kilovoltage according to patient size. RS: [id number] Narrative 10/08/2024 7:[address] ABDOMEN [...] milliamperage and/orkilovoltage according to patient size. RS: [id number] Kait Borjas NP [facility] ORDERABLES Final Result * (ABNORMAL) Urine Microscopic (sediment only) (10/07/2024 9:34 PM EST) WBC 6-10(A) 0 - 2 HPF 10/07/2024 9:47 PM [facility] RBC 3-5(A) 0-2 HPF HPF 10/07/2024 9:47 PM EST [facility] Squam Epithelial Moderate(A ) Few HPF 10/07/2024 9:47 PM EST [facility] Mucus Few Few HPF 10/07/2024 9:47 PM [facility] Bacteria Few(A) None Seen HPF 10/07/2024 9:47 PM [facility] Urine Urine specimen obtained by clean catch procedure / Unknown Collection / Unknown 10/07/2024 9:34 PM EST 10/07/2024 9:34 PM EST us Keesha Olivarez PA-C URINE ORDERABLES Final Result [facility] [address] [place] [address] * (ABNORMAL) Urinalysis, Reflex to Culture (10/07/2024 9:34 PM EST) Color Yellow Colorless, Yellow, Light-Yellow , Dark-Yellow 10/07/2024 9:41 PM [facility] Clarity, UA Turbid(A) Clear 10/07/2024 9:41 PM [facility] Specific [place] 1.025 1.000 - 1.030 10/07/2024 9:41 PM [facility] pH 7.5 5.0 - 8.0 10/07/2024 9:41 PM [facility] Protein 10 Negative, 10 , 20 , 30 mg/dL 10/07/2024 9:41 PM [facility] Glucose Normal Normal, 30 , 50 mg/dL 10/07/2024 9:41 PM [facility] Ketones Trace Negative, Trace mg/dL 10/07/2024 9:41 PM [facility] Blood Negative Negative, 0.03 mg/dL 10/07/2024 9:41 PM [facility] Bilirubin UA Negative Negative mg/dL 10/07/2024 9:41 PM [facility] Urobilinogen Normal Normal mg/dL 10/07/2024 9:41 PM [facility] Nitrite Negative Negative 10/07/2024 9:41 PM [facility] Leukocyte Esterase 250(A) Negative, 25 John Paul/uL 10/07/2024 9:41 PM [facility] Urine Urine specimen obtained by clean catch procedure / Unknown Collection / Unknown 10/07/2024 9:34 PM EST 10/07/2024 9:34 PM EST [facility] - 10/07/2024 9:41 PM EST A urine culture is being performed on this specimen due to established reflex criteria Keesha Olivarez PA-C URINE ORDERABLES Final Result Performing Organization Address [facility]/ZIP Co de Phone Number [facility] [address] [place] [address] * Urine Culture and [place] Count (10/07/2024 9:34 PM EST) Pathologist [facility] Culture 10,000 - 50,000 colonies/ml Mixed Gram Positive Organisms SUSCEPTIBIL ITY TESTING 10/09/2024 11:37 AM EST [facility] Urine Urine specimen obtained by clean catch procedure / Unknown Collection / Unknown 10/07/2024 9:34 PM EST 10/07/2024 9:41 PM EST Narrative [facility] - 10/09/2024 11:37 AM EST Organisms present in low colony counts are not considered significant. No further work up will be performed. Keesha Olivarez PA-C MICROBIOLOGY - GENERAL ORDERA BLES Final Result Performing Organization Address City/[facility]/ZIP Co de Phone Number [facility] [address] [place] [address] * (ABNORMAL) CBC and Auto Differential (10/07/2024 6:39 PM EST) WBC 11.6(H) 4.8 - 11.2 10*3/??L 10/07/2024 6:45 PM EST [facility] RBC 5.42(H) 3.60 - 5.40 10*6/??L 10/07/2024 6:45 PM EST [facility] HGB 15.8 12.0 - 15.8 g/dL 10/07/2024 6:45 PM EST [facility] HCT 46.4 36.0 - 48.0 % 10/07/2024 6:45 PM EST [facility] MCV 85.7 82.0 - 98.0 fL 10/07/2024 6:45 PM EST [facility] MCH 29.1 27.0 - 35.0 pg 10/07/2024 6:45 PM [facility] MCHC 34.0 32.0 - 37.0 g/dL 10/07/2024 6:45 PM [facility] RDW 12.4 12.0 - 15.0 % 10/07/2024 6:45 PM [facility] PLT 367 150 - 400 10*3/??L 10/07/2024 6:45 PM [facility] MPV 8.2 7.0 - 14.0 fL 10/07/2024 6:45 PM [facility] Neut % 51.4 45.0 - 85.0 % 10/07/2024 6:45 PM [facility] Lymph % 35.9 15.0 - 45.0 % 10/07/2024 6:45 PM [facility] [place] % 10.9 0.0 - 12.0 % 10/07/2024 6:45 PM [facility] Eos % 1.4 0.0 - 7.0 % 10/07/2024 6:45 PM [facility] Baso % 0.4 0.0 - 3.0 % 10/07/2024 6:45 PM [facility] NRBC% 0 0 /100 WBC /100 WBC 10/07/2024 6:45 PM [facility] Neut # 6.0 2.2 - 9.5 10*3/??L 10/07/2024 6:45 PM [facility] Lym # 4.2 0.7 - 5.0 10*3/??L 10/07/2024 6:45 PM [facility] [place] # 1.3 0.0 - 1.3 10*3/??L 10/07/2024 6:45 PM [facility] Eos # 0.2 0.0 - 0.4 10*3/??L 10/07/2024 6:45 PM [facility] Baso # 0.0 0.0 - 0.3 10*3/??L 10/07/2024 6:45 PM [facility] Blood Venipuncture / Unknown 10/07/2024 6:39 PM EST 10/07/2024 6:42 PM EST Keesha Banna PA-C LAB BLOOD ORDERABLES Final Re sult Performing Organization Address [facility]/ZIP Co de Phone Number [facility] [address] [place] [phone] * hCG, serum, qualitative (10/07/2024 6:39 PM EST) hCG Qual Negative Negative 10/07/2024 7:03 PM EST [facility] Blood Venipuncture / Unknown 10/07/2024 6:39 PM EST 10/07/2024 6:42 PM EST Keesha Banna PA-C LAB BLOOD ORDERABLES Final Re sult Performing Organization Address [facility]/ZIP Co de Phone Number [facility] [address] [place] [phone] * Lipase (10/07/2024 6:39 PM EST) Pathologist [facility] Lipase 38 12 - 53 U/L 10/07/2024 7:04 PM EST [facility] Blood Venipuncture / Unknown 10/07/2024 6:39 PM EST 10/07/2024 6:42 PM EST Keesha Banna PA-C LAB BLOOD ORDERABLES Final Re sult Performing Organization Address [facility]/ZIP Co de Phone Number [facility] [address] [place] [phone] * (ABNORMAL) Comprehensive metabolic panel (10/07/2024 6:39 PM EST) Pathologist [facility] Sodium 141 136 - 145 mEq/L 10/07/2024 7:04 PM EST [facility] Potassium 3.9 3.5 - 5.1 mEq/L 10/07/2024 7:04 PM EST [facility] Chloride 104 98 - 109 mEq/L 10/07/2024 7:04 PM [facility] CO2 25 20 - 31 mEq/L 10/07/2024 7:04 PM [facility] Anion Gap 12 4 - 15 mEq/L 10/07/2024 7:04 PM [facility] Glucose 101(H) 70 - 100 mg/dL 10/07/2024 7:04 PM [facility] Creatinine 1.19(H) 0.50 - 1.00 mg/dL 10/07/2024 7:04 PM [facility] eGFR (Female) >60 60 - 115 mL/min 10/07/2024 7:04 PM [facility] BUN 10 9 - 23 mg/dL 10/07/2024 7:04 PM [facility] Calcium 10.0 8.3 - 10.6 mg/dL 10/07/2024 7:04 PM [facility] Total Protein 8.3(H) 5.7 - 8.2 g/dL 10/07/2024 7:04 PM [facility] Albumin 5.4(H) 3.2 - 4.8 g/dL 10/07/2024 7:04 PM [facility] A/G Ratio 1.9 1.0 - 2.3 10/07/2024 7:04 PM [facility] Total Bilirubin 0.5 0.2 - 1.0 mg/dL 10/07/2024 7:04 PM [facility] AST 20 13 - 40 U/L 10/07/2024 7:04 PM [facility] Alkaline Phosphatase 77 46 - 116 IU/L 10/07/2024 7:04 PM [facility] ALT 24 7 - 40 U/L 10/07/2024 7:04 PM [facility] Blood Venipuncture / Unknown 10/07/2024 6:39 PM EST 10/07/2024 6:42 PM EST [facility] - 10/07/2024 7:04 PM EST The calcium reference range has been changed as of 08/21/2024. us Keesha Olivarez PA-C LAB BLOOD ORDERABLES Final Re sult [facility] [address] [place] [address] from Last 3 Months Insurance [facility] Care Teams Carbonation Tester Relationship Specialty [place] [id number] PCP - General 10/07/24
== END 2024-10-24 09:04 | disposition home or self-care (01) ==
LOC: HO.LAB 09:03
PROVIDERS: PCP Internal Medicine; Visit Provider Internal Medicine
DX: R30.0 Dysuria (principal); R10.9 Unspecified abdominal pain
CPT/HCPCS: 81003; 96127

== ENCOUNTER 2024-10-24 10:21 | Outpatient (REF) | payer OTHER, SELFPAY ==
--- OUTSIDE RECORDS SUMMARY | 2024-10-24 12:22 | XMS_ITS | Encounter Summary ---
Author Organization [facility] Address [address] [place] [id number] Phone Care Team Providers Care Manager Roofing Name Role Phone Elsy Kitchen MD Primary Care Pro vider Encounter Details Date Type Department Care Team (Late st Contact Info) Description 11/24/2017 Conversion Encounter [facility] [address] [phone] Elsy Kitchen MD [address] [id number] Social History Tobacco Use Types Packs/Day Years [...] on filedocumented in this encounter Care Teams Manager Roofing Relationship Specialty Start Date End Date Elsy Kitchen MD [address] [id number] PCP - General 05/02/17 documented as of this encounter
--- OUTSIDE RECORDS SUMMARY | 2024-10-24 12:22 | XMS_ITS | Clinical Summary ---
Author Organization [facility] Address [address] [place], [place] [phone] Phone Care Team Providers Care Performance Improvement Specialist Name Role Phone Elsy Kitchen MD Primary [...] age to complete this topic Care Teams Performance Improvement Specialist Relationship Specialty Start Date End Date Elsy Kitchen MD [address] [place] [phone] PCP - General 05/02/17
--- OUTSIDE RECORDS SUMMARY | 2024-10-24 12:22 | XMS_ITS | Encounter Summary ---
Author Organization [facility] Address [address] [place] [address] Care Team Providers Care Rotary Driller Helper Name Role Phone Pcp, No Primary Care Provider Unavailabl e Encounter Details Date Type Department Care Team (Late st Contact Info) Description 10/07/2024 Procedure Pass [facility] - [address] [phone] Social History Tobacco Use Types [...] on filedocumented in this encounter Care Teams Rotary Driller Helper Relationship Specialty Start Date End Date Pcp, Cris [phone] PCP - General 10/07/24 documented as of this encounter
--- OUTSIDE RECORDS SUMMARY | 2024-10-24 12:22 | XMS_ITS | Clinical Summary ---
Author Organization [facility] [employer] [facility] Address [address] [facility] [address] [address] Care Team Providers Care Head Banquet Waitress Name Role Phone No, Pcp FAGOT HEATER HELPER Primary Care Provider Unavailabl e Allergies Active [...] Adults 18 yrs or above (or HM Modifier)([facility]) 2015 Hepatitis C Virus Infection in Adolescents and Adults: Screening (or Modifier) ([facility]) 2015 SDOH Screening Reminder: Annually for all adults ([facility]) 2015 Tobacco Smoking Cessation: i n Adults excluding Women: Behavioral and Pharmacotherapy Interventions ([facility]) 2015 Lipid Screening: Once for Women aged 20 to 45 yrs ([facility]) 2017 Cervical Cancer Screenin-65 yrs of age (or Modifier) 2018 Cervical Cancer Screening: Pap every 3 yrs pts age 21-65 2018 Cervical Cancer: Pap Screening with Modifier timing ([facility]) 2018 Cervical Cancer: hrHPV alone or with cotesting Pap for Pts 30-65yrs screening every 5yrs ([facility]) 2018 DTaP/Tdap/Td Vaccines ([facility]) (7 - Td or Tdap) 08/02/2018 08/02/2008, 07/31/2002, 12/26/1998, Additional history exists Flu Vaccination: Yearly for ages 18mos through 64 years (or Modifier)([facility]) 04/26/2024 COVID-19 Vaccine Screening: Initial Series and Booster Status ([facility]) (2023- season) 2024 Zoster/Shingles Vaccine Series Screening: Adults aged 18+ yrs (or HM Modifiers)([facility]) (1 of 2) 2047 08/02/2008, 07/24/1998 Pneumococcal Vaccination Screening: Pts 0-19 & 19-64 yrs of age ([facility]) Aged Out No longer eligible based on patient's age to complete this topic Medical Devices Not on file Insurance [facility] Care Teams Head Banquet Waitress Relationship Specialty Start Date End Date No, Pcp, FAGOT HEATER HELPER N/A Do not use PCP - General Family Medicine 02/27/20
--- OUTSIDE RECORDS SUMMARY | 2024-10-24 12:22 | XMS_ITS | Encounter Summary ---
Author Organization [facility] Address [address] [place] [address] Care Team Providers Care Client Service Representative Name Role Phone Pcp, No Primary Care Provider Unavailabl e Reason for Visit * Reason Comments Back Pain Abdominal Pain Vomiting Encounter Details Date Type Department Care Team (Late st Contact Info) Description 10/07/2024 8:02 PM EST - 10/07/2024 11:57 PM EST Emergency [facility] [address] [place] [phone] Keesha Olivarez PA-C [address] [place] [phone] Kait Borjas NP [address] [place] [phone] Cystitis (Primary Dx) Discharge Disposition: Home or [...] sent through Care Everywhere. * Acute Cystitis (Sudanese) documented in this encounter Medications at Time [...] m) Body mass index is 26.63 kg/m??. Dawson body weight: 61.6 kg (135 lb 12.9 [...] on file Progress LAMS Score: 0 (10/07/24 3964) Medical Decision Making Patient is a non-toxic [...] and/or kilovoltage according to patient size. RS: [id number] Narrative 10/08/2024 7:[address] ABDOMEN [...] milliamperage and/orkilovoltage according to patient size. RS: [id number] Kait Borjas ZYGLO TECHNICIAN IMG CT ORDERABLES Final Result * (ABNORMAL) Urine Microscopic (sediment only) (10/07/2024 9:34 PM EST) WBC 6-10(A) 0 - 2 HPF 10/07/2024 9:47 PM EST [facility] RBC 3-5(A) 0-2 HPF HPF 10/07/2024 9:47 PM EST [facility] Squam Epithelial Moderate(A ) Few HPF 10/07/2024 9:47 PM EST [facility] Mucus Few Few HPF 10/07/2024 9:47 PM EST [facility] Bacteria Few(A) None Seen HPF 10/07/2024 9:47 PM [facility] Urine Urine specimen obtained by clean catch procedure / Unknown Collection / Unknown 10/07/2024 9:34 PM EST 10/07/2024 9:34 PM EST Keesha Olivarez PA-C URINE ORDERABLES Final Result [facility] [address] [place] [phone] * Urine Culture and [place] Count (10/07/2024 9:34 PM EST) Culture 10,000 - 50,000 colonies/ml Mixed Gram Positive Organisms SUSCEPTIBIL ITY TESTING 10/09/2024 11:37 AM EST [facility] Urine Urine specimen obtained by clean catch procedure / Unknown Collection / Unknown 10/07/2024 9:34 PM EST 10/07/2024 9:41 PM EST [facility] - 10/09/2024 11:37 AM EST Organisms present in low colony counts are not considered significant. No further work up will be performed. us Keesha Olivarez PA-C MICROBIOLOGY - GENERAL ORDERA BLES Final Result [facility] [address] [place] [phone] * (ABNORMAL) Urinalysis, Reflex to Culture (10/07/2024 9:34 PM EST) Color Yellow Colorless, Yellow, Light-Yellow , Dark-Yellow 10/07/2024 9:41 PM [facility] Clarity, UA Turbid(A) Clear 10/07/2024 9:41 PM [facility] Specific [place] 1.025 1.000 - 1.030 10/07/2024 9:41 PM [facility] pH 7.5 5.0 - 8.0 10/07/2024 9:41 PM [facility] Protein 10 Negative, 10 , 20 , 30 mg/dL 10/07/2024 9:41 PM [facility] Glucose Normal Normal, 30 , 50 mg/dL 10/07/2024 9:41 PM [facility] Ketones Trace Negative, Trace mg/dL 10/07/2024 9:41 PM [facility] Blood Negative Negative, 0.03 mg/dL 10/07/2024 9:41 PM [facility] Bilirubin UA Negative Negative mg/dL 10/07/2024 9:41 PM [facility] Urobilinogen Normal Normal mg/dL 10/07/2024 9:41 PM EST [facility] Nitrite Negative Negative 10/07/2024 9:41 PM EST [facility] Leukocyte Esterase 250(A) Negative, 25 John Paul/uL 10/07/2024 9:41 PM EST [facility] Urine Urine specimen obtained by clean catch procedure / Unknown Collection / Unknown 10/07/2024 9:34 PM EST 10/07/2024 9:34 PM EST Narrative [facility] - 10/07/2024 9:41 PM EST A urine culture is being performed on this specimen due to established reflex criteria Keesha Banna PA-C URINE ORDERABLES Final Result Performing Organization Address [facility]/ZIP Co de Phone Number [facility] [address] [place] [phone] * hCG, serum, qualitative (10/07/2024 6:39 PM EST) hCG Qual Negative Negative 10/07/2024 7:03 PM EST [facility] Blood Venipuncture / Unknown 10/07/2024 6:39 PM EST 10/07/2024 6:42 PM EST Keesha LUXAna PA-C LAB BLOOD ORDERABLES Final Re sult Performing Organization Address [facility]/ZIP Co de Phone Number [facility] [address] [place] [phone] * Lipase (10/07/2024 6:39 PM EST) Lipase 38 12 - 53 U/L 10/07/2024 7:04 PM EST [facility] Blood Venipuncture / Unknown 10/07/2024 6:39 PM EST 10/07/2024 6:42 PM EST Keesha LUXAna PA-C LAB BLOOD ORDERABLES Final Re sult Performing Organization Address City/[facility]/ZIP Co de Phone Number [facility] [address] [place] [phone] * (ABNORMAL) Comprehensive metabolic panel (10/07/2024 6:39 PM EST) Sodium 141 136 - 145 mEq/L 10/07/2024 7:04 PM [facility] Potassium 3.9 3.5 - 5.1 mEq/L 10/07/2024 7:04 PM [facility] Chloride 104 98 - 109 mEq/L 10/07/2024 7:04 PM [facility] CO2 25 20 - 31 mEq/L 10/07/2024 7:04 PM [facility] Anion Gap 12 4 - 15 mEq/L 10/07/2024 7:04 PM [facility] Glucose 101(H) 70 - 100 mg/dL 10/07/2024 7:04 PM [facility] Creatinine 1.19(H) 0.50 - 1.00 mg/dL 10/07/2024 7:04 PM [facility] eGFR (Female) >60 60 - 115 mL/min 10/07/2024 7:04 PM [facility] BUN 10 9 - 23 mg/dL 10/07/2024 7:04 PM [facility] Calcium 10.0 8.3 - 10.6 mg/dL 10/07/2024 7:04 PM [facility] Total Protein 8.3(H) 5.7 - 8.2 g/dL 10/07/2024 7:04 PM [facility] Albumin 5.4(H) 3.2 - 4.8 g/dL 10/07/2024 7:04 PM [facility] A/G Ratio 1.9 1.0 - 2.3 10/07/2024 7:04 PM [facility] Total Bilirubin 0.5 0.2 - 1.0 mg/dL 10/07/2024 7:04 PM [facility] AST 20 13 - 40 U/L 10/07/2024 7:04 PM [facility] Alkaline Phosphatase 77 46 - 116 IU/L 10/07/2024 7:04 PM [facility] ALT 24 7 - 40 U/L 10/07/2024 7:04 PM EST [facility] Blood Venipuncture / Unknown 10/07/2024 6:39 PM EST 10/07/2024 6:42 PM EST [facility] - 10/07/2024 7:04 PM EST The calcium reference range has been changed as of 08/21/2024. us Keesha Olivarez PA-C LAB BLOOD ORDERABLES Final Re sult [facility] [address] [place] [address] * (ABNORMAL) CBC and Auto Differential (10/07/2024 6:39 PM EST) WBC 11.6(H) 4.8 - 11.2 10*3/??L 10/07/2024 6:45 PM EST [facility] RBC 5.42(H) 3.60 - 5.40 10*6/??L 10/07/2024 6:45 PM [facility] HGB 15.8 12.0 - 15.8 g/dL 10/07/2024 6:45 PM [facility] HCT 46.4 36.0 - 48.0 % 10/07/2024 6:45 PM [facility] MCV 85.7 82.0 - 98.0 fL 10/07/2024 6:45 PM EST [facility] MCH 29.1 27.0 - 35.0 pg 10/07/2024 6:45 PM [facility] MCHC 34.0 32.0 - 37.0 g/dL 10/07/2024 6:45 PM [facility] RDW 12.4 12.0 - 15.0 % 10/07/2024 6:45 PM [facility] PLT 367 150 - 400 10*3/??L 10/07/2024 6:45 PM [facility] MPV 8.2 7.0 - 14.0 fL 10/07/2024 6:45 PM EST [facility] Neut % 51.4 45.0 - 85.0 % 10/07/2024 6:45 PM EST [facility] Lymph % 35.9 15.0 - 45.0 % 10/07/2024 6:45 PM EST [facility] [place] % 10.9 0.0 - 12.0 % 10/07/2024 6:45 PM EST [facility] Eos % 1.4 0.0 - 7.0 % 10/07/2024 6:45 PM EST [facility] Baso % 0.4 0.0 - 3.0 % 10/07/2024 6:45 PM EST [facility] NRBC% 0 0 /100 WBC /100 WBC 10/07/2024 6:45 PM EST [facility] Neut # 6.0 2.2 - 9.5 10*3/??L 10/07/2024 6:45 PM EST [facility] Lym # 4.2 0.7 - 5.0 10*3/??L 10/07/2024 6:45 PM EST [facility] [place] # 1.3 0.0 - 1.3 10*3/??L 10/07/2024 6:45 PM EST [facility] Eos # 0.2 0.0 - 0.4 10*3/??L 10/07/2024 6:45 PM EST [facility] Baso # 0.0 0.0 - 0.3 10*3/??L 10/07/2024 6:45 PM EST [facility] Blood Venipuncture / Unknown 10/07/2024 6:39 PM EST 10/07/2024 6:42 PM EST us Keesha Olivarez PA-C LAB BLOOD ORDERABLES Final Re sult [facility] [address] [place] [address] documented in this encounter Visit [...] RN) documented in this encounter Care Teams Client Service Representative Relationship Specialty [place] [phone] PCP - General 10/07/24 documented as of this encounter
--- OUTSIDE RECORDS SUMMARY | 2024-10-24 12:22 | XMS_ITS | Clinical Summary ---
Author Organization [facility] Address [address] [place] [address] Care Team Providers Care Mortgage Advisor Name Role Phone Pcp, No Primary Care [...] EST - 10/07/2024 11:57 PM EST Emergency [address] [phone] Keesha Olivarez PA-C LaRock, Alicia, NP Cystitis (Primary Dx) Discharge Disposition: Home or Self Care 10/07/2024 Travel 10/07/2024 Procedure Pass [address] [phone] from Last 3 Months Social History Tobacco [...] and/or kilovoltage according to patient size. RS: [id number] Narrative 10/08/2024 7:[address] ABDOMEN [...] milliamperage and/orkilovoltage according to patient size. RS: [id number] Kait Borjas NP [facility] ORDERABLES Final Result * (ABNORMAL) Urine Microscopic (sediment only) (10/07/2024 9:34 PM EST) WBC 6-10(A) 0 - 2 HPF 10/07/2024 9:47 PM [facility] RBC 3-5(A) 0-2 HPF HPF 10/07/2024 9:47 PM EST [facility] Squam Epithelial Moderate(A ) Few HPF 10/07/2024 9:47 PM EST [facility] Mucus Few Few HPF 10/07/2024 9:47 PM [facility] Bacteria Few(A) None Seen HPF 10/07/2024 9:47 PM [facility] Urine Urine specimen obtained by clean catch procedure / Unknown Collection / Unknown 10/07/2024 9:34 PM EST 10/07/2024 9:34 PM EST us Keesha Olivarez PA-C URINE ORDERABLES Final Result [facility] [address] [place] [address] * (ABNORMAL) Urinalysis, Reflex to Culture (10/07/2024 9:34 PM EST) Color Yellow Colorless, Yellow, Light-Yellow , Dark-Yellow 10/07/2024 9:41 PM [facility] Clarity, UA Turbid(A) Clear 10/07/2024 9:41 PM [facility] Specific [place] 1.025 1.000 - 1.030 10/07/2024 9:41 PM [facility] pH 7.5 5.0 - 8.0 10/07/2024 9:41 PM [facility] Protein 10 Negative, 10 , 20 , 30 mg/dL 10/07/2024 9:41 PM [facility] Glucose Normal Normal, 30 , 50 mg/dL 10/07/2024 9:41 PM [facility] Ketones Trace Negative, Trace mg/dL 10/07/2024 9:41 PM [facility] Blood Negative Negative, 0.03 mg/dL 10/07/2024 9:41 PM [facility] Bilirubin UA Negative Negative mg/dL 10/07/2024 9:41 PM [facility] Urobilinogen Normal Normal mg/dL 10/07/2024 9:41 PM [facility] Nitrite Negative Negative 10/07/2024 9:41 PM [facility] Leukocyte Esterase 250(A) Negative, 25 John Paul/uL 10/07/2024 9:41 PM [facility] Urine Urine specimen obtained by clean catch procedure / Unknown Collection / Unknown 10/07/2024 9:34 PM EST 10/07/2024 9:34 PM EST [facility] - 10/07/2024 9:41 PM EST A urine culture is being performed on this specimen due to established reflex criteria Keesha Olivarez PA-C URINE ORDERABLES Final Result Performing Organization Address [facility]/ZIP Co de Phone Number [facility] [address] [place] [address] * Urine Culture and [place] Count (10/07/2024 9:34 PM EST) Pathologist [facility] Culture 10,000 - 50,000 colonies/ml Mixed Gram Positive Organisms SUSCEPTIBIL ITY TESTING 10/09/2024 11:37 AM EST [facility] Urine Urine specimen obtained by clean catch procedure / Unknown Collection / Unknown 10/07/2024 9:34 PM EST 10/07/2024 9:41 PM EST Narrative [facility] - 10/09/2024 11:37 AM EST Organisms present in low colony counts are not considered significant. No further work up will be performed. Keesha Olivarez PA-C MICROBIOLOGY - GENERAL ORDERA BLES Final Result Performing Organization Address City/[facility]/ZIP Co de Phone Number [facility] [address] [place] [address] * (ABNORMAL) CBC and Auto Differential (10/07/2024 6:39 PM EST) WBC 11.6(H) 4.8 - 11.2 10*3/??L 10/07/2024 6:45 PM EST [facility] RBC 5.42(H) 3.60 - 5.40 10*6/??L 10/07/2024 6:45 PM EST [facility] HGB 15.8 12.0 - 15.8 g/dL 10/07/2024 6:45 PM EST [facility] HCT 46.4 36.0 - 48.0 % 10/07/2024 6:45 PM EST [facility] MCV 85.7 82.0 - 98.0 fL 10/07/2024 6:45 PM EST [facility] MCH 29.1 27.0 - 35.0 pg 10/07/2024 6:45 PM [facility] MCHC 34.0 32.0 - 37.0 g/dL 10/07/2024 6:45 PM [facility] RDW 12.4 12.0 - 15.0 % 10/07/2024 6:45 PM [facility] PLT 367 150 - 400 10*3/??L 10/07/2024 6:45 PM [facility] MPV 8.2 7.0 - 14.0 fL 10/07/2024 6:45 PM [facility] Neut % 51.4 45.0 - 85.0 % 10/07/2024 6:45 PM [facility] Lymph % 35.9 15.0 - 45.0 % 10/07/2024 6:45 PM [facility] [place] % 10.9 0.0 - 12.0 % 10/07/2024 6:45 PM [facility] Eos % 1.4 0.0 - 7.0 % 10/07/2024 6:45 PM [facility] Baso % 0.4 0.0 - 3.0 % 10/07/2024 6:45 PM [facility] NRBC% 0 0 /100 WBC /100 WBC 10/07/2024 6:45 PM [facility] Neut # 6.0 2.2 - 9.5 10*3/??L 10/07/2024 6:45 PM [facility] Lym # 4.2 0.7 - 5.0 10*3/??L 10/07/2024 6:45 PM [facility] [place] # 1.3 0.0 - 1.3 10*3/??L 10/07/2024 6:45 PM [facility] Eos # 0.2 0.0 - 0.4 10*3/??L 10/07/2024 6:45 PM [facility] Baso # 0.0 0.0 - 0.3 10*3/??L 10/07/2024 6:45 PM [facility] Blood Venipuncture / Unknown 10/07/2024 6:39 PM EST 10/07/2024 6:42 PM EST Keesha Banna PA-C LAB BLOOD ORDERABLES Final Re sult Performing Organization Address [facility]/ZIP Co de Phone Number [facility] [address] [place] [phone] * hCG, serum, qualitative (10/07/2024 6:39 PM EST) hCG Qual Negative Negative 10/07/2024 7:03 PM EST [facility] Blood Venipuncture / Unknown 10/07/2024 6:39 PM EST 10/07/2024 6:42 PM EST Keesha Banna PA-C LAB BLOOD ORDERABLES Final Re sult Performing Organization Address [facility]/ZIP Co de Phone Number [facility] [address] [place] [phone] * Lipase (10/07/2024 6:39 PM EST) Pathologist [facility] Lipase 38 12 - 53 U/L 10/07/2024 7:04 PM EST [facility] Blood Venipuncture / Unknown 10/07/2024 6:39 PM EST 10/07/2024 6:42 PM EST Keesha Banna PA-C LAB BLOOD ORDERABLES Final Re sult Performing Organization Address [facility]/ZIP Co de Phone Number [facility] [address] [place] [phone] * (ABNORMAL) Comprehensive metabolic panel (10/07/2024 6:39 PM EST) Pathologist [facility] Sodium 141 136 - 145 mEq/L 10/07/2024 7:04 PM EST [facility] Potassium 3.9 3.5 - 5.1 mEq/L 10/07/2024 7:04 PM EST [facility] Chloride 104 98 - 109 mEq/L 10/07/2024 7:04 PM [facility] CO2 25 20 - 31 mEq/L 10/07/2024 7:04 PM [facility] Anion Gap 12 4 - 15 mEq/L 10/07/2024 7:04 PM [facility] Glucose 101(H) 70 - 100 mg/dL 10/07/2024 7:04 PM [facility] Creatinine 1.19(H) 0.50 - 1.00 mg/dL 10/07/2024 7:04 PM [facility] eGFR (Female) >60 60 - 115 mL/min 10/07/2024 7:04 PM [facility] BUN 10 9 - 23 mg/dL 10/07/2024 7:04 PM [facility] Calcium 10.0 8.3 - 10.6 mg/dL 10/07/2024 7:04 PM [facility] Total Protein 8.3(H) 5.7 - 8.2 g/dL 10/07/2024 7:04 PM [facility] Albumin 5.4(H) 3.2 - 4.8 g/dL 10/07/2024 7:04 PM [facility] A/G Ratio 1.9 1.0 - 2.3 10/07/2024 7:04 PM [facility] Total Bilirubin 0.5 0.2 - 1.0 mg/dL 10/07/2024 7:04 PM [facility] AST 20 13 - 40 U/L 10/07/2024 7:04 PM [facility] Alkaline Phosphatase 77 46 - 116 IU/L 10/07/2024 7:04 PM [facility] ALT 24 7 - 40 U/L 10/07/2024 7:04 PM [facility] Blood Venipuncture / Unknown 10/07/2024 6:39 PM EST 10/07/2024 6:42 PM EST [facility] - 10/07/2024 7:04 PM EST The calcium reference range has been changed as of 08/21/2024. us Keesha Olivarez PA-C LAB BLOOD ORDERABLES Final Re sult [facility] [address] [place] [address] from Last 3 Months Insurance [facility] Care Teams Mortgage Advisor Relationship Specialty [place] [phone] PCP - General 10/07/24
--- OUTSIDE RECORDS SUMMARY | 2024-10-24 12:22 | XMS_ITS | Encounter Summary ---
Author Organization [facility] Address [address] [place] [address] Care Team Providers Care Certified Health Education Specialist Name Role Phone Pcp, No Primary Care [...] on filedocumented in this encounter Care Teams Certified Health Education Specialist Relationship Specialty [place] [id number] PCP - General 10/07/24 documented as of this encounter
[2024-10-24 13:34] LABS: MANUAL DIFF FLAG NO
[2024-10-24 13:55] LABS: Basophils Percent Auto 0.3 % (0-2); Eosinophils Absolute Auto 0.1 X10*3/uL (0.0-0.4); Eosinophils Percent Auto 1.3 % (0-4); Hematocrit 42.6 % (37.0-47.0); Hemoglobin 14.6 g/dl (12.0-16.0); Imm Gran Abs Auto 0.01 X10*3/uL (0.00-0.03); Imm Gran Pct Auto 0.2 % (0.0-0.4); Lymphocytes Absolute Auto 2.8 X10*3/uL (1.2-4.9); Mean Corpuscular HGB Conc 34.3 g/dl (31.0-35.0); Mean Corpuscular Hemoglobin 29.1 pg (27.0-33.0); Mean Corpuscular Volume 84.9 fL (80.0-98.0); Mean Platelet Volume 10.9 fL (9.4-12.3); Monocytes Absolute Auto 0.6 X10*3/uL (0.1-1.2); Monocytes Percent Auto 9.4 % (2-11); Neutrophils Absolute Auto 2.8 x10*3/uL (2.0-8.3); Neutrophils Percent Auto 44.8 % (45-73); Platelet Count 304 X10*3/uL (160-400); Red Blood Count 5.02 X10*6/uL (4.20-5.50); Red Cell Distribution Width 11.9 % (11.0-16.0); White Blood Count 6.3 X10*3/uL (4.8-10.8)
[2024-10-24 14:18] LABS: Alanine Aminotransferase 16 U/L (0-31); Albumin Level 4.3 g/dL (3.5-5.0); Alkaline Phosphatase 58 U/L (39-117); Anion Gap 11 (12-20); Aspartate Amino Transferase 21 U/L (5-31); Bilirubin Total 0.5 mg/dL (0.0-1.0); Blood Urea Nitrogen 9 mg/dL (9-16); Calcium 9.2 mg/dL (8.4-10.2); Carbon Dioxide 24 mmol/L (22-29); Chloride 105 mmol/L (96-108); Estimated Glomerular Filt Rate > 60; Glucose Random 82 mg/dL (60-115); Sodium 136 mmol/L (135-145); Total Protein 7.8 g/dL (6.5-8.0)
== END 2024-10-24 10:22 | disposition home or self-care (01) ==
LOC: HO.HMGCLDS 10:21
PROVIDERS: PCP Internal Medicine; Visit Provider Internal Medicine
DX: R10.9 Unspecified abdominal pain (principal); R30.0 Dysuria
CPT/HCPCS: 36415; 80053; 85025; 87086

== ENCOUNTER 2024-10-31 10:53 | Outpatient (REF) | payer OTHER, SELFPAY ==
--- OUTSIDE RECORDS SUMMARY | 2024-10-31 12:10 | XMS_ITS | Encounter Summary ---
Author Organization [facility] Address [address] [place] [phone] Phone Care Team Providers Care Management Planner Name Role Phone Elsy Kitchen MD Primary Care Pro vider Encounter Details Date Type Department Care Team (Late st Contact Info) Description 11/24/2017 Conversion Encounter [facility] [address] [phone] Elsy Kitchen MD [address] [phone] Social History Tobacco Use Types Packs/Day Years [...] on filedocumented in this encounter Care Teams Management Planner Relationship Specialty Start Date End Date Elsy Kitchen MD [address] [phone] PCP - General 05/02/17 documented as of this encounter
--- OUTSIDE RECORDS SUMMARY | 2024-10-31 12:10 | XMS_ITS | Encounter Summary ---
Author Organization [facility] Address [address] [place] [address] Care Team Providers Care Field Merchandiser Name Role Phone Pcp, No Primary Care Provider Unavailabl e Encounter Details Date Type Department Care Team (Late st Contact Info) Description 10/07/2024 Procedure Pass [facility] - [address] [phone] Social History Tobacco Use Types [...] on filedocumented in this encounter Care Teams Field Merchandiser Relationship Specialty Start Date End Date Pcp, Cris [id number] PCP - General 10/07/24 documented as of this encounter
--- OUTSIDE RECORDS SUMMARY | 2024-10-31 12:10 | XMS_ITS | Clinical Summary ---
Author Organization [facility] Address [address] [place] [address] Care Team Providers Care Licensed Optical Dispenser Name Role Phone Pcp, No Primary Care [...] hours for 7 days 14 tablet 10/07/2024 Encounters Date Type Department Care Team Description 10/07/2024 8:02 PM EST - 10/07/2024 11:57 PM EST Emergency [address] [phone] Keesha Olivarez PA-C LaRock, Alicia, NP Cystitis (Primary Dx) Discharge Disposition: Home or Self Care 10/07/2024 Travel 10/07/2024 Procedure Pass [address] [phone] from Last 3 Months Social History Tobacco [...] and/or kilovoltage according to patient size. RS: [id number] Narrative 10/08/2024 7:[address] ABDOMEN [...] milliamperage and/orkilovoltage according to patient size. RS: [id number] Kait Borjas NP [facility] CT ORDERABLES Final Result * (ABNORMAL) Urine Microscopic (sediment only) (10/07/2024 9:34 PM EST) WBC 6-10(A) 0 - 2 HPF 10/07/2024 9:47 PM [facility] RBC 3-5(A) 0-2 HPF HPF 10/07/2024 9:47 PM EST [facility] Squam Epithelial Moderate(A ) Few HPF 10/07/2024 9:47 PM EST [facility] Mucus Few Few HPF 10/07/2024 9:47 PM [facility] Bacteria Few(A) None Seen HPF 10/07/2024 9:47 PM [facility] Urine Urine specimen obtained by clean catch procedure / Unknown Collection / Unknown 10/07/2024 9:34 PM EST 10/07/2024 9:34 PM EST us Keesha Olivarez PA-C URINE ORDERABLES Final Result [facility] [address] [place] [address] * (ABNORMAL) Urinalysis, Reflex to Culture (10/07/2024 9:34 PM EST) Color Yellow Colorless, Yellow, Light-Yellow , Dark-Yellow 10/07/2024 9:41 PM [facility] Clarity, UA Turbid(A) Clear 10/07/2024 9:41 PM [facility] Specific [place] 1.025 1.000 - 1.030 10/07/2024 9:41 PM [facility] pH 7.5 5.0 - 8.0 10/07/2024 9:41 PM [facility] Protein 10 Negative, 10 , 20 , 30 mg/dL 10/07/2024 9:41 PM [facility] Glucose Normal Normal, 30 , 50 mg/dL 10/07/2024 9:41 PM [facility] Ketones Trace Negative, Trace mg/dL 10/07/2024 9:41 PM [facility] Blood Negative Negative, 0.03 mg/dL 10/07/2024 9:41 PM [facility] Bilirubin UA Negative Negative mg/dL 10/07/2024 9:41 PM [facility] Urobilinogen Normal Normal mg/dL 10/07/2024 9:41 PM [facility] Nitrite Negative Negative 10/07/2024 9:41 PM [facility] Leukocyte Esterase 250(A) Negative, 25 John Paul/uL 10/07/2024 9:41 PM [facility] Urine Urine specimen obtained by clean catch procedure / Unknown Collection / Unknown 10/07/2024 9:34 PM EST 10/07/2024 9:34 PM EST [facility] - 10/07/2024 9:41 PM EST A urine culture is being performed on this specimen due to established reflex criteria Keesha Olivarez PA-C URINE ORDERABLES Final Result Performing Organization Address [facility]/ZIP Co de Phone Number [facility] [address] [place] [address] * Urine Culture and [place] Count (10/07/2024 9:34 PM EST) Pathologist [facility] Culture 10,000 - 50,000 colonies/ml Mixed Gram Positive Organisms SUSCEPTIBIL ITY TESTING 10/09/2024 11:37 AM EST [facility] Urine Urine specimen obtained by clean catch procedure / Unknown Collection / Unknown 10/07/2024 9:34 PM EST 10/07/2024 9:41 PM EST Narrative [facility] - 10/09/2024 11:37 AM EST Organisms present in low colony counts are not considered significant. No further work up will be performed. Keesha Olivarez PA-C MICROBIOLOGY - GENERAL ORDERA BLES Final Result Performing Organization Address City/[facility]/ZIP Co de Phone Number [facility] [address] [place] [address] * (ABNORMAL) CBC and Auto Differential (10/07/2024 6:39 PM EST) WBC 11.6(H) 4.8 - 11.2 10*3/??L 10/07/2024 6:45 PM EST [facility] RBC 5.42(H) 3.60 - 5.40 10*6/??L 10/07/2024 6:45 PM EST [facility] HGB 15.8 12.0 - 15.8 g/dL 10/07/2024 6:45 PM EST [facility] HCT 46.4 36.0 - 48.0 % 10/07/2024 6:45 PM EST [facility] MCV 85.7 82.0 - 98.0 fL 10/07/2024 6:45 PM EST [facility] MCH 29.1 27.0 - 35.0 pg 10/07/2024 6:45 PM [facility] MCHC 34.0 32.0 - 37.0 g/dL 10/07/2024 6:45 PM [facility] RDW 12.4 12.0 - 15.0 % 10/07/2024 6:45 PM [facility] PLT 367 150 - 400 10*3/??L 10/07/2024 6:45 PM [facility] MPV 8.2 7.0 - 14.0 fL 10/07/2024 6:45 PM [facility] Neut % 51.4 45.0 - 85.0 % 10/07/2024 6:45 PM [facility] Lymph % 35.9 15.0 - 45.0 % 10/07/2024 6:45 PM [facility] [place] % 10.9 0.0 - 12.0 % 10/07/2024 6:45 PM [facility] Eos % 1.4 0.0 - 7.0 % 10/07/2024 6:45 PM [facility] Baso % 0.4 0.0 - 3.0 % 10/07/2024 6:45 PM [facility] NRBC% 0 0 /100 WBC /100 WBC 10/07/2024 6:45 PM [facility] Neut # 6.0 2.2 - 9.5 10*3/??L 10/07/2024 6:45 PM [facility] Lym # 4.2 0.7 - 5.0 10*3/??L 10/07/2024 6:45 PM [facility] [place] # 1.3 0.0 - 1.3 10*3/??L 10/07/2024 6:45 PM [facility] Eos # 0.2 0.0 - 0.4 10*3/??L 10/07/2024 6:45 PM [facility] Baso # 0.0 0.0 - 0.3 10*3/??L 10/07/2024 6:45 PM [facility] Blood Venipuncture / Unknown 10/07/2024 6:39 PM EST 10/07/2024 6:42 PM EST Keesha Banna PA-C LAB BLOOD ORDERABLES Final Re sult Performing Organization Address [facility]/ZIP Co de Phone Number [facility] [address] [place] [phone] * hCG, serum, qualitative (10/07/2024 6:39 PM EST) hCG Qual Negative Negative 10/07/2024 7:03 PM EST [facility] Blood Venipuncture / Unknown 10/07/2024 6:39 PM EST 10/07/2024 6:42 PM EST Keesha Banna PA-C LAB BLOOD ORDERABLES Final Re sult Performing Organization Address [facility]/ZIP Co de Phone Number [facility] [address] [place] [address] * Lipase (10/07/2024 6:39 PM EST) Pathologist [facility] Lipase 38 12 - 53 U/L 10/07/2024 7:04 PM EST [facility] Blood Venipuncture / Unknown 10/07/2024 6:39 PM EST 10/07/2024 6:42 PM EST Keesha Banna PA-C LAB BLOOD ORDERABLES Final Re sult Performing Organization Address [facility]/ZIP Co de Phone Number [facility] [address] [place] [phone] * (ABNORMAL) Comprehensive metabolic panel (10/07/2024 6:39 PM EST) Pathologist [facility] Sodium 141 136 - 145 mEq/L 10/07/2024 7:04 PM EST [facility] Potassium 3.9 3.5 - 5.1 mEq/L 10/07/2024 7:04 PM EST [facility] Chloride 104 98 - 109 mEq/L 10/07/2024 7:04 PM [facility] CO2 25 20 - 31 mEq/L 10/07/2024 7:04 PM [facility] Anion Gap 12 4 - 15 mEq/L 10/07/2024 7:04 PM [facility] Glucose 101(H) 70 - 100 mg/dL 10/07/2024 7:04 PM [facility] Creatinine 1.19(H) 0.50 - 1.00 mg/dL 10/07/2024 7:04 PM [facility] eGFR (Female) >60 60 - 115 mL/min 10/07/2024 7:04 PM [facility] BUN 10 9 - 23 mg/dL 10/07/2024 7:04 PM [facility] Calcium 10.0 8.3 - 10.6 mg/dL 10/07/2024 7:04 PM [facility] Total Protein 8.3(H) 5.7 - 8.2 g/dL 10/07/2024 7:04 PM [facility] Albumin 5.4(H) 3.2 - 4.8 g/dL 10/07/2024 7:04 PM [facility] A/G Ratio 1.9 1.0 - 2.3 10/07/2024 7:04 PM [facility] Total Bilirubin 0.5 0.2 - 1.0 mg/dL 10/07/2024 7:04 PM [facility] AST 20 13 - 40 U/L 10/07/2024 7:04 PM [facility] Alkaline Phosphatase 77 46 - 116 IU/L 10/07/2024 7:04 PM [facility] ALT 24 7 - 40 U/L 10/07/2024 7:04 PM [facility] Blood Venipuncture / Unknown 10/07/2024 6:39 PM EST 10/07/2024 6:42 PM EST [facility] - 10/07/2024 7:04 PM EST The calcium reference range has been changed as of 08/21/2024. us Keesha Olivarez PA-C LAB BLOOD ORDERABLES Final Re sult [facility] [address] [place] [address] from Last 3 Months Insurance [facility] Care Teams Licensed Optical Dispenser Relationship Specialty [place] [id number] PCP - General 10/07/24
--- OUTSIDE RECORDS SUMMARY | 2024-10-31 12:10 | XMS_ITS | Clinical Summary ---
Author Organization [facility] Address [address] [place], [place] [phone] Phone Care Team Providers Care Surface Plate Inspector Name Role Phone Elsy Kitchen MD [...] age to complete this topic Care Teams Surface Plate Inspector Relationship Specialty Start Date End Date Elsy Kitchen MD [address] [place] [phone] PCP - General 05/02/17
--- OUTSIDE RECORDS SUMMARY | 2024-10-31 12:10 | XMS_ITS | Encounter Summary ---
Author Organization [facility] Address [address] [place] [address] Care Team Providers Care Office 365 Consultant Name Role Phone Pcp, No Primary Care [...] on filedocumented in this encounter Care Teams Office 365 Consultant Relationship Specialty [place] [phone] PCP - General 10/07/24 documented as of this encounter
--- OUTSIDE RECORDS SUMMARY | 2024-10-31 12:11 | XMS_ITS | Encounter Summary ---
Author Organization [facility] Address [address] [place] [address] Care Team Providers Care Water Conservationist Name Role Phone Pcp, No Primary Care Provider Unavailabl e Reason for Visit * Reason Comments Back Pain Abdominal Pain Vomiting Encounter Details Date Type Department Care Team (Late st Contact Info) Description 10/07/2024 8:02 PM EST - 10/07/2024 11:57 PM EST Emergency [facility] [address] [place] [phone] Keesha Olivarez PA-C [address] [place] [phone] Kait Borjas NP [address] [place] [phone] Cystitis (Primary Dx) Discharge Disposition: Home or [...] sent through Care Everywhere. * Acute Cystitis (Bulgarian) documented in this encounter Medications at Time [...] m) Body mass index is 26.63 kg/m??. [place] body weight: 61.6 kg (135 lb 12.9 [...] on file Progress LAMS Score: 0 (10/07/24 8212) Medical Decision Making Patient is a non-toxic [...] and/or kilovoltage according to patient size. RS: [id number] Narrative 10/08/2024 7:[address] ABDOMEN [...] milliamperage and/orkilovoltage according to patient size. RS: [id number] Kait Borjas TECHNICIAN CHEMICAL CLEANING IMG CT ORDERABLES Final Result * (ABNORMAL) Urine Microscopic (sediment only) (10/07/2024 9:34 PM EST) WBC 6-10(A) 0 - 2 HPF 10/07/2024 9:47 PM EST [facility] RBC 3-5(A) 0-2 HPF HPF 10/07/2024 9:47 PM EST [facility] Squam Epithelial Moderate(A ) Few HPF 10/07/2024 9:47 PM EST [facility] Mucus Few Few HPF 10/07/2024 9:47 PM EST [facility] Bacteria Few(A) None Seen HPF 10/07/2024 9:47 PM [facility] Urine Urine specimen obtained by clean catch procedure / Unknown Collection / Unknown 10/07/2024 9:34 PM EST 10/07/2024 9:34 PM EST Keesha Olivarez PA-C URINE ORDERABLES Final Result [facility] [address] [place] [phone] * Urine Culture and [place] Count (10/07/2024 9:34 PM EST) Culture 10,000 - 50,000 colonies/ml Mixed Gram Positive Organisms SUSCEPTIBIL ITY TESTING 10/09/2024 11:37 AM EST [facility] Urine Urine specimen obtained by clean catch procedure / Unknown Collection / Unknown 10/07/2024 9:34 PM EST 10/07/2024 9:41 PM EST [facility] - 10/09/2024 11:37 AM EST Organisms present in low colony counts are not considered significant. No further work up will be performed. us Keesha Olivarez PA-C MICROBIOLOGY - GENERAL ORDERA BLES Final Result [facility] [address] [place] [phone] * (ABNORMAL) Urinalysis, Reflex to Culture (10/07/2024 9:34 PM EST) Color Yellow Colorless, Yellow, Light-Yellow , Dark-Yellow 10/07/2024 9:41 PM [facility] Clarity, UA Turbid(A) Clear 10/07/2024 9:41 PM [facility] Specific [place] 1.025 1.000 - 1.030 10/07/2024 9:41 PM [facility] pH 7.5 5.0 - 8.0 10/07/2024 9:41 PM [facility] Protein 10 Negative, 10 , 20 , 30 mg/dL 10/07/2024 9:41 PM [facility] Glucose Normal Normal, 30 , 50 mg/dL 10/07/2024 9:41 PM [facility] Ketones Trace Negative, Trace mg/dL 10/07/2024 9:41 PM [facility] Blood Negative Negative, 0.03 mg/dL 10/07/2024 9:41 PM [facility] Bilirubin UA Negative Negative mg/dL 10/07/2024 9:41 PM [facility] Urobilinogen Normal Normal mg/dL 10/07/2024 9:41 PM EST [facility] Nitrite Negative Negative 10/07/2024 9:41 PM EST [facility] Leukocyte Esterase 250(A) Negative, 25 John Paul/uL 10/07/2024 9:41 PM EST [facility] Urine Urine specimen obtained by clean catch procedure / Unknown Collection / Unknown 10/07/2024 9:34 PM EST 10/07/2024 9:34 PM EST Narrative [facility] - 10/07/2024 9:41 PM EST A urine culture is being performed on this specimen due to established reflex criteria Keesha Banna PA-C URINE ORDERABLES Final Result Performing Organization Address [facility]/ZIP Co de Phone Number [facility] [address] [place] [phone] * hCG, serum, qualitative (10/07/2024 6:39 PM EST) hCG Qual Negative Negative 10/07/2024 7:03 PM EST [facility] Blood Venipuncture / Unknown 10/07/2024 6:39 PM EST 10/07/2024 6:42 PM EST Keesha iExplorena PA-C LAB BLOOD ORDERABLES Final Re sult Performing Organization Address [facility]/ZIP Co de Phone Number [facility] [address] [place] [phone] * Lipase (10/07/2024 6:39 PM EST) Lipase 38 12 - 53 U/L 10/07/2024 7:04 PM EST [facility] Blood Venipuncture / Unknown 10/07/2024 6:39 PM EST 10/07/2024 6:42 PM EST Keesha iExplorena PA-C LAB BLOOD ORDERABLES Final Re sult Performing Organization Address City/[facility]/ZIP Co de Phone Number [facility] [address] [place] [phone] * (ABNORMAL) Comprehensive metabolic panel (10/07/2024 6:39 PM EST) Sodium 141 136 - 145 mEq/L 10/07/2024 7:04 PM [facility] Potassium 3.9 3.5 - 5.1 mEq/L 10/07/2024 7:04 PM [facility] Chloride 104 98 - 109 mEq/L 10/07/2024 7:04 PM [facility] CO2 25 20 - 31 mEq/L 10/07/2024 7:04 PM [facility] Anion Gap 12 4 - 15 mEq/L 10/07/2024 7:04 PM [facility] Glucose 101(H) 70 - 100 mg/dL 10/07/2024 7:04 PM [facility] Creatinine 1.19(H) 0.50 - 1.00 mg/dL 10/07/2024 7:04 PM [facility] eGFR (Female) >60 60 - 115 mL/min 10/07/2024 7:04 PM [facility] BUN 10 9 - 23 mg/dL 10/07/2024 7:04 PM [facility] Calcium 10.0 8.3 - 10.6 mg/dL 10/07/2024 7:04 PM [facility] Total Protein 8.3(H) 5.7 - 8.2 g/dL 10/07/2024 7:04 PM [facility] Albumin 5.4(H) 3.2 - 4.8 g/dL 10/07/2024 7:04 PM [facility] A/G Ratio 1.9 1.0 - 2.3 10/07/2024 7:04 PM [facility] Total Bilirubin 0.5 0.2 - 1.0 mg/dL 10/07/2024 7:04 PM [facility] AST 20 13 - 40 U/L 10/07/2024 7:04 PM [facility] Alkaline Phosphatase 77 46 - 116 IU/L 10/07/2024 7:04 PM [facility] ALT 24 7 - 40 U/L 10/07/2024 7:04 PM EST [facility] Blood Venipuncture / Unknown 10/07/2024 6:39 PM EST 10/07/2024 6:42 PM EST [facility] - 10/07/2024 7:04 PM EST The calcium reference range has been changed as of 08/21/2024. us Keesha Olivarez PA-C LAB BLOOD ORDERABLES Final Re sult [facility] [address] [place] [address] * (ABNORMAL) CBC and Auto Differential (10/07/2024 6:39 PM EST) WBC 11.6(H) 4.8 - 11.2 10*3/??L 10/07/2024 6:45 PM EST [facility] RBC 5.42(H) 3.60 - 5.40 10*6/??L 10/07/2024 6:45 PM [facility] HGB 15.8 12.0 - 15.8 g/dL 10/07/2024 6:45 PM [facility] HCT 46.4 36.0 - 48.0 % 10/07/2024 6:45 PM [facility] MCV 85.7 82.0 - 98.0 fL 10/07/2024 6:45 PM EST [facility] MCH 29.1 27.0 - 35.0 pg 10/07/2024 6:45 PM [facility] MCHC 34.0 32.0 - 37.0 g/dL 10/07/2024 6:45 PM [facility] RDW 12.4 12.0 - 15.0 % 10/07/2024 6:45 PM [facility] PLT 367 150 - 400 10*3/??L 10/07/2024 6:45 PM [facility] MPV 8.2 7.0 - 14.0 fL 10/07/2024 6:45 PM EST [facility] Neut % 51.4 45.0 - 85.0 % 10/07/2024 6:45 PM EST [facility] Lymph % 35.9 15.0 - 45.0 % 10/07/2024 6:45 PM EST [facility] [place] % 10.9 0.0 - 12.0 % 10/07/2024 6:45 PM EST [facility] Eos % 1.4 0.0 - 7.0 % 10/07/2024 6:45 PM EST [facility] Baso % 0.4 0.0 - 3.0 % 10/07/2024 6:45 PM EST [facility] NRBC% 0 0 /100 WBC /100 WBC 10/07/2024 6:45 PM EST [facility] Neut # 6.0 2.2 - 9.5 10*3/??L 10/07/2024 6:45 PM EST [facility] Lym # 4.2 0.7 - 5.0 10*3/??L 10/07/2024 6:45 PM EST [facility] [place] # 1.3 0.0 - 1.3 10*3/??L 10/07/2024 6:45 PM EST [facility] Eos # 0.2 0.0 - 0.4 10*3/??L 10/07/2024 6:45 PM EST [facility] Baso # 0.0 0.0 - 0.3 10*3/??L 10/07/2024 6:45 PM EST [facility] Blood Venipuncture / Unknown 10/07/2024 6:39 PM EST 10/07/2024 6:42 PM EST us Keesha Olivarez PA-C LAB BLOOD ORDERABLES Final Re sult [facility] [address] [place] [address] documented in this encounter Visit [...] RN) documented in this encounter Care Teams Water Conservationist Relationship Specialty [place] [phone] PCP - General 10/07/24 documented as of this encounter
--- OUTSIDE RECORDS SUMMARY | 2024-10-31 12:11 | XMS_ITS | Clinical Summary ---
Author Organization [facility] Address [address] [place] [address] Care Team Providers Care Authorization Coordinator Name Role Phone No, Pcp AUTOMATION TECHNOLOGIST Primary Care Provider Unavailabl e Allergies Active [...] Adults 18 yrs or above (or HM Modifier)([facility]) 2015 Hepatitis C Virus Infection in Adolescents and Adults: Screening (or Modifier) ([facility]) 2015 SDOH Screening Reminder: Annually for all adults ([facility]) 2015 Tobacco Smoking Cessation: i n Adults excluding Women: Behavioral and Pharmacotherapy Interventions ([facility]) 2015 Lipid Screening: Once for Women aged 20 to 45 yrs ([facility]) 2017 Cervical Cancer Screenin-65 yrs of age (or Modifier) 2018 Cervical Cancer Screening: Pap every 3 yrs pts age 21-65 2018 Cervical Cancer: Pap Screening with Modifier timing ([facility]) 2018 Cervical Cancer: hrHPV alone or with cotesting Pap for Pts 30-65yrs screening every 5yrs ([facility]) 2018 DTaP/Tdap/Td Vaccines ([facility]) (7 - Td or Tdap) 08/02/2018 08/02/2008, 07/31/2002, 12/26/1998, Additional history exists Flu Vaccination: Yearly for ages 18mos through 64 years (or Modifier)([facility]) 04/26/2024 COVID-19 Vaccine Screening: Initial Series and Booster Status ([facility]) (2023- season) 2024 Zoster/Shingles Vaccine Series Screening: Adults aged 18+ yrs (or HM Modifiers)([facility]) (1 of 2) 2047 08/02/2008, 07/24/1998 Pneumococcal Vaccination Screening: Pts 0-19 & 19-64 yrs of age ([facility]) Aged Out No longer eligible based on patient's age to complete this topic Medical Devices Not on file Insurance [facility] Care Teams Authorization Coordinator Relationship Specialty Start Date End Date No, Pcp, AUTOMATION TECHNOLOGIST N/A Do not use PCP - General Family Medicine 02/27/20
== END 2024-10-31 10:54 | disposition home or self-care (01) ==
LOC: HO.HMGCLDS 10:53
PROVIDERS: PCP Internal Medicine; Visit Provider Internal Medicine
DX: R30.0 Dysuria (principal)
CPT/HCPCS: 87086

== ENCOUNTER 2024-11-22 12:57 | Outpatient (REF) | payer OTHER, SELFPAY ==
--- NOTE | ~2024-11-22 | US_ITS ---
EXAMINATION: US ABDOMEN LIMITED HISTORY: R10.11 - Right upper quadrant pain TECHNIQUE: Real-time grayscale ultrasound imaging of the right upper quadrant was performed and images were reviewed. COMPARISON: There are no prior studies for comparison. FINDINGS: Liver: The right lobe of the liver measures 12.8 cm in size. The left lobe of the liver measures 8.2 cm in size. The liver demonstrates normal homogeneous echotexture. No focal mass or intrahepatic biliary ductal dilatation is identified. Gallbladder and biliary tree: The gallbladder is surgically absent. The common bile duct is normal in caliber measuring 4 mm. Right Kidney: The right kidney measures 12.2 cm in length. The right kidney is unremarkable, without evidence of masses, hydronephrosis, or calculi. Pancreas: The pancreatic head, neck, and body are unremarkable. The pancreatic tail is obscured by bowel gas. Abdominal aorta and inferior vena cava: The visualized portions of the abdominal aorta and inferior vena cava are normal in caliber. There is no free fluid in the right upper quadrant. US/US abdomen limited IMPRESSION: That is postcholecystectomy. Unremarkable right upper quadrant ultrasound. Electronically signed by: Gus Chanel MD 11/22/2024 01:27 PM [facility]
--- OUTSIDE RECORDS SUMMARY | 2024-11-22 15:22 | XMS_ITS | Encounter Summary ---
Author Organization [facility] Address [address] [place] [phone] Phone Care Team Providers Care Speech Language Pathologist Assistant Name Role Phone Elsy Kitchen MD Primary Care Pro vider Encounter Details Date Type Department Care Team (Late st Contact Info) Description 11/24/2017 Conversion Encounter [facility] [address] [phone] Elsy Kitchen MD [address] [phone] Social History Tobacco Use Types Packs/Day Years [...] on filedocumented in this encounter Care Teams Speech Language Pathologist Assistant Relationship Specialty Start Date End Date Elsy Kitchen MD [address] [phone] PCP - General 05/02/17 documented as of this encounter
--- OUTSIDE RECORDS SUMMARY | 2024-11-22 15:22 | XMS_ITS | Clinical Summary ---
Author Organization [facility] Address [address] [place] [address] Care Team Providers Care Restoration Ecologist Name Role Phone Pcp, No Primary Care Provider Unavailabl e Allergies Active Allergy Reactions Criticality Noted Date Comments Penicillins Rash Low 10/07/2024 Seafood (Not Shellfish) - Food Allergy Rash Low 10/07/2024 Medications ondansetron (ZOFRAN) 4 MG tablet Take 1 tablet (4 mg total) by mouth every 6 (six) hours for 10 days 12 tablet 10/07/2024 Active Encounters Date Type Department Care Team Description 10/07/2024 8:02 PM EST - 10/07/2024 11:57 PM EST Emergency [address] [id number] Keesha Olivarez PA-C LaRock, Alicia, NP Cystitis (Primary Dx) Discharge Disposition: Home or Self Care 10/07/2024 Travel 10/07/2024 Procedure Pass [address] [id number] from Last 3 Months Social History Tobacco [...] and/or kilovoltage according to patient size. RS: [id number] Narrative 10/08/2024 7:[address] ABDOMEN [...] milliamperage and/orkilovoltage according to patient size. RS: [id number] Kait Borjas NP IMG CT ORDERABLES Final Result * (ABNORMAL) Urine Microscopic (sediment only) (10/07/2024 9:34 PM EST) WBC 6-10(A) 0 - 2 HPF 10/07/2024 9:47 PM [facility] RBC 3-5(A) 0-2 HPF HPF 10/07/2024 9:47 PM [facility] Squam Epithelial Moderate(A ) Few HPF 10/07/2024 9:47 PM [facility] Mucus Few Few HPF 10/07/2024 9:47 PM [facility] Bacteria Few(A) None Seen HPF 10/07/2024 9:47 PM [facility] Urine Urine specimen obtained by clean catch procedure / Unknown Collection / Unknown 10/07/2024 9:34 PM EST 10/07/2024 9:34 PM EST Keesha Olivarez PA-C URINE ORDERABLES Final Result Performing Organization Address City/State/[facility] Co de Phone Number [facility] [address] [place] [address] * (ABNORMAL) Urinalysis, Reflex to Culture (10/07/2024 9:34 PM EST) Color Yellow Colorless, Yellow, Light-Yellow , Dark-Yellow 10/07/2024 9:41 PM [facility] Clarity, UA Turbid(A) Clear 10/07/2024 9:41 PM [facility] Specific [place] 1.025 1.000 - 1.030 10/07/2024 9:41 PM [facility] pH 7.5 5.0 - 8.0 10/07/2024 9:41 PM [facility] Protein 10 Negative, 10 , 20 , 30 mg/dL 10/07/2024 9:41 PM [facility] Glucose Normal Normal, 30 , 50 mg/dL 10/07/2024 9:41 PM [facility] Ketones Trace Negative, Trace mg/dL 10/07/2024 9:41 PM [facility] Blood Negative Negative, 0.03 mg/dL 10/07/2024 9:41 PM [facility] Bilirubin UA Negative Negative mg/dL 10/07/2024 9:41 PM [facility] Urobilinogen Normal Normal mg/dL 10/07/2024 9:41 PM [facility] Nitrite Negative Negative 10/07/2024 9:41 PM [facility] Leukocyte Esterase 250(A) Negative, 25 John Paul/uL 10/07/2024 9:41 PM [facility] Urine Urine specimen obtained by clean catch procedure / Unknown Collection / Unknown 10/07/2024 9:34 PM EST 10/07/2024 9:34 PM EST [facility] - 10/07/2024 9:41 PM EST A urine culture is being performed on this specimen due to established reflex criteria Keesha Olivarez PA-C URINE ORDERABLES Final Result [facility] [address] [place] [address] * Urine Culture and [place] Count (10/07/2024 9:34 PM EST) Culture 10,000 - 50,000 colonies/ml Mixed Gram Positive Organisms SUSCEPTIBIL ITY TESTING 10/09/2024 11:37 AM EST [facility] Urine Urine specimen obtained by clean catch procedure / Unknown Collection / Unknown 10/07/2024 9:34 PM EST 10/07/2024 9:41 PM EST Narrative [facility] - 10/09/2024 11:37 AM EST Organisms present in low colony counts are not considered significant. No further work up will be performed. Keesha Olivarez PA-C MICROBIOLOGY - GENERAL ORDERA BLES Final Result Performing Organization Address [facility] Co de Phone Number [facility] [address] [place] [address] * (ABNORMAL) CBC and Auto Differential (10/07/2024 6:39 PM EST) WBC 11.6(H) 4.8 - 11.2 10*3/??L 10/07/2024 6:45 PM EST [facility] RBC 5.42(H) 3.60 - 5.40 10*6/??L 10/07/2024 6:45 PM EST [facility] HGB 15.8 12.0 - 15.8 g/dL 10/07/2024 6:45 PM EST [facility] HCT 46.4 36.0 - 48.0 % 10/07/2024 6:45 PM EST [facility] MCV 85.7 82.0 - 98.0 fL 10/07/2024 6:45 PM EST [facility] MCH 29.1 27.0 - 35.0 pg 10/07/2024 6:45 PM EST [facility] MCHC 34.0 32.0 - 37.0 g/dL 10/07/2024 6:45 PM [facility] RDW 12.4 12.0 - 15.0 % 10/07/2024 6:45 PM EST [facility] PLT 367 150 - 400 10*3/??L 10/07/2024 6:45 PM [facility] MPV 8.2 7.0 - 14.0 fL 10/07/2024 6:45 PM EST [facility] Neut % 51.4 45.0 - 85.0 % 10/07/2024 6:45 PM EST [facility] Lymph % 35.9 15.0 - 45.0 % 10/07/2024 6:45 PM [facility] [place] % 10.9 0.0 - 12.0 % 10/07/2024 6:45 PM [facility] Eos % 1.4 0.0 - 7.0 % 10/07/2024 6:45 PM [facility] Baso % 0.4 0.0 - 3.0 % 10/07/2024 6:45 PM [facility] NRBC% 0 0 /100 WBC /100 WBC 10/07/2024 6:45 PM [facility] Neut # 6.0 2.2 - 9.5 10*3/??L 10/07/2024 6:45 PM [facility] Lym # 4.2 0.7 - 5.0 10*3/??L 10/07/2024 6:45 PM [facility] [place] # 1.3 0.0 - 1.3 10*3/??L 10/07/2024 6:45 PM [facility] Eos # 0.2 0.0 - 0.4 10*3/??L 10/07/2024 6:45 PM [facility] Baso # 0.0 0.0 - 0.3 10*3/??L 10/07/2024 6:45 PM [facility] Blood Venipuncture / Unknown 10/07/2024 6:39 PM EST 10/07/2024 6:42 PM EST us Keesha Olivarez PA-C LAB BLOOD ORDERABLES Final Re sult [facility] [address] [place] [id number] * hCG, serum, qualitative (10/07/2024 6:39 PM EST) hCG Qual Negative Negative 10/07/2024 7:03 PM EST [facility] Blood Venipuncture / Unknown 10/07/2024 6:39 PM EST 10/07/2024 6:42 PM EST Keesha Olivarez PA-C LAB BLOOD ORDERABLES Final Re sult [facility] [address] [place] [phone] * Lipase (10/07/2024 6:39 PM EST) Lipase 38 12 - 53 U/L 10/07/2024 7:04 PM EST [facility] Blood Venipuncture / Unknown 10/07/2024 6:39 PM EST 10/07/2024 6:42 PM EST Keesha DigitalTangiblerachel PA-C LAB BLOOD ORDERABLES Final Re sult [facility] [address] [place] [phone] * (ABNORMAL) Comprehensive metabolic panel (10/07/2024 6:39 PM EST) Sodium 141 136 - 145 mEq/L 10/07/2024 7:04 PM EST [facility] Potassium 3.9 3.5 - 5.1 mEq/L 10/07/2024 7:04 PM EST [facility] Chloride 104 98 - 109 mEq/L 10/07/2024 7:04 PM EST [facility] CO2 25 20 - 31 mEq/L 10/07/2024 7:04 PM [facility] Anion Gap 12 4 - 15 mEq/L 10/07/2024 7:04 PM [facility] Glucose 101(H) 70 - 100 mg/dL 10/07/2024 7:04 PM [facility] Creatinine 1.19(H) 0.50 - 1.00 mg/dL 10/07/2024 7:04 PM [facility] eGFR (Female) >60 60 - 115 mL/min 10/07/2024 7:04 PM [facility] BUN 10 9 - 23 mg/dL 10/07/2024 7:04 PM [facility] Calcium 10.0 8.3 - 10.6 mg/dL 10/07/2024 7:04 PM [facility] Total Protein 8.3(H) 5.7 - 8.2 g/dL 10/07/2024 7:04 PM [facility] Albumin 5.4(H) 3.2 - 4.8 g/dL 10/07/2024 7:04 PM [facility] A/G Ratio 1.9 1.0 - 2.3 10/07/2024 7:04 PM [facility] Total Bilirubin 0.5 0.2 - 1.0 mg/dL 10/07/2024 7:04 PM [facility] AST 20 13 - 40 U/L 10/07/2024 7:04 PM [facility] Alkaline Phosphatase 77 46 - 116 IU/L 10/07/2024 7:04 PM [facility] ALT 24 7 - 40 U/L 10/07/2024 7:04 PM [facility] Blood Venipuncture / Unknown 10/07/2024 6:39 PM EST 10/07/2024 6:42 PM EST [facility] - 10/07/2024 7:04 PM EST The calcium reference range has been changed as of 08/21/2024. us Keesha Olivarez PA-C LAB BLOOD ORDERABLES Final Re sult [facility] [address] [place] [address] from Last [address] [facility] POS Care Teams Restoration Ecologist Relationship Specialty [place] [phone] PCP - General 10/07/24
--- OUTSIDE RECORDS SUMMARY | 2024-11-22 15:23 | XMS_ITS | Clinical Summary ---
Author Organization [facility] Address [address] [place], [place] [id number] Phone Care Team Providers Care Repeat Chief Name Role Phone Elsy Kitchen MD Primary Care Pro vider Immunizations Immunization Administration Dates Next Due DTaP 07/31/2002, 9,01/27/1998,11/25,1997 [...] age to complete this topic Care Teams Repeat Chief Relationship Specialty Start Date End Date Elsy Kitchen MD [address] [place] [id number] PCP - General 05/02/17
--- OUTSIDE RECORDS SUMMARY | 2024-11-22 15:23 | XMS_ITS | Encounter Summary ---
Author Organization [facility] Address [address] [place] [address] Care Team Providers Care Circulation Crew Leader Name Role Phone Pcp, No Primary Care Provider Unavailabl e Encounter Details Date Type Department Care Team (Late st Contact Info) Description 10/07/2024 Procedure Pass [facility] - [address] [phone] Social History Tobacco Use Types [...] on filedocumented in this encounter Care Teams Circulation Crew Leader Relationship Specialty Start Date End Date Pcp, Cris [phone] PCP - General 10/07/24 documented as of this encounter
--- OUTSIDE RECORDS SUMMARY | 2024-11-22 15:23 | XMS_ITS | Clinical Summary ---
Author Organization [facility] Address [address] [place] [address] Care Team Providers Care Cadet Deck Name Role Phone No, Pcp BATCH RECORDS CLERK Primary Care Provider Unavailabl e Allergies Active [...] Adults 18 yrs or above (or HM Modifier)([facility]) 2015 Hepatitis C Virus Infection in Adolescents and Adults: Screening (or Modifier) ([facility]) 2015 SDOH Screening Reminder: Annually for all adults ([facility]) 2015 Tobacco Smoking Cessation: i n Adults excluding Women: Behavioral and Pharmacotherapy Interventions ([facility]) 2015 Lipid Screening: Once for Women aged 20 to 45 yrs ([facility]) 2017 Cervical Cancer Screenin-65 yrs of age (or Modifier) 2018 Cervical Cancer Screening: Pap every 3 yrs pts age 21-65 2018 Cervical Cancer: Pap Screening with Modifier timing ([facility]) 2018 Cervical Cancer: hrHPV alone or with cotesting Pap for Pts 30-65yrs screening every 5yrs ([facility]) 2018 DTaP/Tdap/Td Vaccines ([facility]) (7 - Td or Tdap) 08/02/2018 08/02/2008, 07/31/2002, 12/26/1998, Additional history exists Flu Vaccination: Yearly for ages 18mos through 64 years (or Modifier)([facility]) 04/26/2024 COVID-19 Vaccine Screening: Initial Series and Booster Status ([facility]) (2023- season) 2024 Zoster/Shingles Vaccine Series Screening: Adults aged 18+ yrs (or HM Modifiers)([facility]) (1 of 2) 2047 08/02/2008, 07/24/1998 Pneumococcal Vaccination Screening: Pts 0-19 & 19-64 yrs of age ([facility]) Aged Out No longer eligible based on patient's age to complete this topic Medical Devices Not on file Insurance [facility] [address] [place] [id number] Care Teams Cadet Deck Relationship Specialty Start Date End Date No, Pcp, BATCH RECORDS CLERK N/A Do not use PCP - General Family Medicine 02/27/20
== END 2024-11-22 12:58 | disposition home or self-care (01) ==
LOC: HO.HMGCX 12:57
PROVIDERS: PCP Internal Medicine; Visit Provider Internal Medicine
DX: R10.11 Right upper quadrant pain (principal)
CPT/HCPCS: 76705

== ENCOUNTER → 2024-11-22 12:58 | Outpatient (BNV) | payer OTHER, SELFPAY | PROVIDERS: PCP Internal Medicine; Visit Provider Radiology Diagnostic Radiology | DX: R10.11 Right upper quadrant pain (principal) | CPT/HCPCS: 76705 ==